=== PATIENT | female | born 1960 | race Caucasian/White ===

== ENCOUNTER 2022-12-10 04:24 | Observation (INO) | payer MEDICARE ==
[2022-12-10] MEDS ORDERED: Sodium Chloride 0.9% 1000 ML 1,000 ML IV STA ×2 (05:08→06:32)
[2022-12-10] MEDS ORDERED: Zofran 4 MG/2 ML VIAL IV ONE (05:08)
--- NOTE | 2022-12-10 05:09 | ERPHSYRPT ---
- History of Present Illness Historian: patient Exam Limitations: no limitations Patient Subjective Stated Complaint: pt states that on 12/07/22 at approx 0100 she woke up with a fever of 101.1 this was accompanied by a cough, chest/ nasal congestion, and diarrhea. reports diarrhea of brown liquid stool approx 5x/day. reports that rarely she coughs up green sputum but mostly isn't coughing much u p. states that she also started noticing bilat lower muscle aches that have remained unchanged despite applying her compression socks. Triage Nursing Assessment: pt ambulated into room 7 independently with slow steady gait after standing on scales for weight acquisition and to bathroom for need to urinate/ have a bowel movement. pt exited bathroom without having had a bm or urinating. she states that she has neurogenic bladder and sometimes has to self cath and is asking for a straight catheter- will speak with MD for order. pt is alert and oriented times three, able to speak in complete sentences, able to move all extremities, and with resp even and unlabored. lung sounds diminished bilat anterior. abd soft, obese, nontender, nondistended, with positive bowel sounds in all quadrants. dry nonproductive cough noted. skin warm, dry, pink, and intact. denies cp, sob, difficulty breathing, n/v, lightheadedness, dizziness. Timing/Duration: day(s) (5 to 6 days) Activities at Onset: none Quality: cramping Abdominal Pain Onset Location: generalized abdomen Severity of Pain-Max: mild Severity of Pain-Current: mild Modifying Factors: Improves With: coughing. Worsens With: vomiting Associated Symptoms: diarrhea, loss of appetite, weakness, No chest pain, No diaphoresis, No shortness of breath Previous symptoms: no prior history Hx Tetanus, Diphtheria Vaccination/Date Given: Yes Hx Influenza Vaccination/Date Given: Yes Hx Pneumococcal Vaccination/Date Given: No Immunizations Up to Date: Yes <AILEEN AKHTAR - Last Filed: 12/10/22 06:52> <ARIS WILKINS - Last Filed: 12/10/22 08:12> - History of Present Illness Time Seen by Provider: 12/10/22 04:55 Allergies/Adverse Reactions: latex Allergy (Intermediate, Unverified 12/10/22 07:55) Hives amoxicillin trihydrate [From Augmentin] Allergy (Mild, Verified 12/10/22 07:55) potassium clavula *RETIRED-08/06/12 [From Augmentin] Allergy (Mild, Verified 12/10/22 07:55) Sulfa (Sulfonamide Antibiotics) [Sulfa(Sulfonamide Antibiotics)] Allergy (Mild, Verified 12/10/22 07:55) sulfamethoxazole [From Bactrim] Allergy (Mild, Verified 12/10/22 07:55) trimethoprim [From Bactrim] Allergy (Mild, Verified 12/10/22 07:55) rofecoxib [From Vioxx] Allergy (Verified 12/10/22 07:55) Nausea and Vomiting Home Medications: Albuterol/Ipratropium Mdi [Combivent Inhaler] 2 puff IH Q4HPRN PRN 09/07/11 [History] Budesonide/Formoterol Fumarate [Symbicort 80-4.5 Mcg Inhaler] 2 puff IH BID 09/07/11 [History] Furosemide 40 mg [Lasix 40 MG] 40 mg PO DAILY 09/07/11 [History] Gabapentin [Neurontin ] 800 mg PO TID 09/07/11 [History] Levothyroxine Sodium 50 Mcg [Synthroid 50 Mcg] 50 mcg PO DAILY 09/07/11 [History] Montelukast Sodium 10 mg [Singulair 10 MG] 10 mg PO HS 09/07/11 [History] Nitrofurantoin Macro 100 mg [Macrobid 100MG Capsule] 100 mg PO 09/07/11 [History] Potassium Chloride Tab* [Klor Con] 10 meq PO BID 09/07/11 [History] Rosuvastatin Calcium [Crestor] 5 mg PO DAILY 09/07/11 [History] Topiramate [Topamax] 200 mg PO BID 09/07/11 [History] Sitagliptin Phosphate [Januvia] 50 mg PO DAILY 09/12/11 [History] carvediloL [Coreg] 6.25 mg PO BID 11/06/11 [History] [place]-3S/Dha/Epa/Fish Oil [Fish Oil 1,200 mg Softgel] 1 each PO DAILY 06/14/13 [History] Acetaminophen 500 mg [Tylenol Extra Strength 500 mg] 500 mg PO Q4H PRN 03/21/13 [History] Baclofen 10 mg PO HS 03/31/13 [History] Cyanocobalamin (Vitamin B-12) [Vitamin B-12] 1,000 mcg PO DAILY 03/31/13 [History] Dicyclomine HCl [Bentyl] 20 mg PO BID 03/31/13 [History] Duloxetine HCl [Cymbalta] 2 tab PO DAILY 03/31/13 [History] Ergocalciferol (Vitamin D2) [Vitamin D] 50,000 tab PO WEEKLY 03/31/13 [History] Fluticasone Propionate [Flonase] 16 gm NS DAILY 03/31/13 [History] Ipratropium/Albuterol Sulfate [Iprat-Albut 0.5-3(2.5) mg/3 ml] 1 neb IH Q4HPRN PRN 03/31/13 [History] Multivit with Iron,Minerals [Compete] 1 each PO DAILY 03/31/13 [History] Estradiol 1 mg [Estrace 1 mg] 1 mg WEEKLY 04/29/13 [History] Lorazepam 1 mg [Ativan 1 MG] 2 mg PO HS 04/29/13 [History] Alendronate Sodium 35 mg PO WEEKLY 07/20/13 [History] Esomeprazole Magnesium [Nexium] 10 mg PO DAILY 07/20/13 [History] Liraglutide [Victoza 2-Nabil] 1.2 mg SQ DAILY 07/20/13 [History] Ropinirole HCl [Requip] 4 mg PO HS 07/20/13 [History] Bumetanide 1 mg [Bumex 1 mg] 1 mg PO DIRECTIONS UNKNOWN 12/10/22 [History] Buspirone HCl 5 mg [Buspar 5 mg] 10 mg PO DAILY 12/10/22 [History] Dicyclomine HCl 20 mg [Bentyl 20 mg] 20 mg PO QID 12/10/22 [History] Duloxetine HCl 60 mg PO DAILY 12/10/22 [History] Gabapentin [Neurontin] 800 mg PO TID 12/10/22 [History] Midodrine HCl 5 mg PO TID 12/10/22 [History] Pantoprazole 40 mg [Protonix 40 mg IV] 40 mg PO DAILY 12/10/22 [History] Ropinirole HCl 3 mg PO TID 12/10/22 [History] Rosuvastatin Calcium 5 mg PO HS 12/10/22 [History] Topiramate [Topiramate ER] 25 mg PO HS 12/10/22 [History] Trazodone HCl 50 mg [Desyrel 50 mg] 50 mg PO HS 12/10/22 [History] Travel Risk - International Travel Have you traveled outside of the country in past 3 weeks: No - Coronavirus Screening Are you exhibiting any of the following symptoms?: Yes Symptoms: Cough: New Onset, Vomiting/Diarrhea Close contact with a COVID-19 positive Pt in past 14-21 Days: No - Vaccine Status Have you recieved a Covid-19 vaccination: Yes 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: [employer] - Vaccination Dates Date of 2cond Vaccination (if applicable): 07/21/20 <AILEEN AKHTAR - Last Filed: 12/10/22 06:52> - Review of Systems Constitutional: No Symptoms Eyes: No Symptoms Ears, Nose, & Throat: No Symptoms Respiratory: Cough, No Dyspnea, No Stridor, No Wheezing Cardiac: No Symptoms Abdominal/Gastrointestinal: Abdominal Pain (Mild diffuse cramping), Diarrhea, Appetite Changes Genitourinary Symptoms: No Symptoms Musculoskeletal: No Symptoms Skin: No Symptoms Neurological: No Symptoms Psychological: No Symptoms Endocrine: No Symptoms Hematologic/Lymphatic: No Symptoms Immunological/Allergic: No Symptoms All Other Systems: Reviewed and Negative <AILEEN AKHTAR - Last Filed: 12/10/22 06:52> - Past Medical History Pertinent Past Medical History: Yes Neurological History: Other ENT History: No Pertinent History Cardiac History: Arrhythmia, Other Respiratory History: Asthma, COPD Endocrine Medical History: Diabetes Type II Musculoskeletal History: Arthritis, Other GI Medical History: Crohns Disease, Other History: Other Psycho-Social History: Depression Female Reproductive Disorders: Cervical Cancer Other Medical History: POTS, RLS, valve replacement, PPM, Afib, IBS, neurogenic bladder (self cath at home PRN), scoliosis, neuropathy, - Past Surgical History Past Surgical History: Yes Neuro Surgical History: No Pertinent History Cardiac: Pacemaker, Valve Replacement Respiratory: Other Gastrointestinal: Appendectomy, Cholecystectomy Genitourinary: No Pertinent History Musculoskeletal: Joint Replacement, Other Female Surgical History: Hysterectomy Other Surgical History: "drained fluid from left lung" , spacers in bilat hips. left knee replacement - Social History Smoking Status: Former smoker Exposure to second hand smoke: Yes Drug Use: none Patient Lives Alone: Yes <AILEEN AKHTAR - Last Filed: 12/10/22 06:52> - Physical Exam General Appearance: no apparent distress, alert, anxiety, obese Eye Exam: PERRL/EOMI, eyes nml inspection Ears, Nose, Throat Exam: normal ENT inspection, moist mucous membranes Neck Exam: normal inspection, non-tender, supple, full range of motion Respiratory Exam: normal breath sounds, lungs clear, airway intact, No chest tenderness, No respiratory distress Cardiovascular Exam: regular rate/rhythm, normal heart sounds, normal peripheral pulses Gastrointestinal/Abdomen Exam: soft, normal bowel sounds, tenderness (Very mild but diffuse), guarding, No rebound Pelvic Exam: not done Rectal Exam: not done Back Exam: normal inspection, normal range of motion, No CVA tenderness, No vertebral tenderness Extremity Exam: normal inspection, normal range of motion, pelvis stable Neurologic Exam: alert, oriented x 3, cooperative, rehab therapy manager II-XII nml as tested, normal mood/affect, nml cerebellar function, nml station & gait, sensation nml Skin Exam: normal color, warm, dry Lymphatic Exam: No adenopathy SpO2 Interpretation: normal SpO2: 97 O2 Delivery: Room Air <AILEEN AKHTAR - Last Filed: 12/10/22 06:52> - Nursing Vital Signs Nursing Vital Signs: Initial Vital Signs Temperature 97.6 F 12/10/22 04:34 Pulse Rate 101 H 12/10/22 04:34 Respiratory Rate 16 12/10/22 04:34 Blood Pressure 127/95 12/10/22 04:34 O2 Sat by Pulse Oximetry 97 12/10/22 04:34 Pain Scale Pain Intensity 0 - Course Nursing assessment & vital signs reviewed: Yes <AILEEN AKHTAR - Last Filed: 12/10/22 06:52> Ordered Tests: Active Orders 24 hr Category Date Time Status IV Insertion STAT Care 12/10/22 05:08 Active ABDOMEN AND PELVIS W/0 CONTRAS [CT] Stat Exams 12/10/22 05:10 Completed CHEST 1 VIEW (PORTABLE) Stat Exams 12/10/22 05:09 Taken AMYLASE Stat Lab 12/10/22 05:58 Completed BLOOD CULTURE Stat Lab 12/10/22 05:58 Received CBC W DIFF Stat Lab 12/10/22 05:58 Completed CMP Stat Lab 12/10/22 05:58 Completed CULTURE,URINE Stat Lab 12/10/22 05:15 Received LIPASE Stat Lab 12/10/22 05:58 Completed Lactic Acid Stat Lab 12/10/22 05:20 Completed MONO SCREEN Stat Lab 12/10/22 05:58 Completed UA W/RFX UR CULTURE Stat Lab 12/10/22 05:15 Completed Medication Summary Discontinued Medications Generic Name Dose Route Start Last Admin Trade Name Freq PRN Reason Stop Dose Admin Hydrocodone Bitart/Acetaminophen 10 ml 12/10/22 05:14 12/10/22 05:20 Hydrocodone/Acetaminophen 5 Ml Udcup PO 12/10/22 05:15 10 ml STAT STA Administration Hydrocodone Bitart/Acetaminophen Confirm 12/10/22 05:18 Hydrocodone/Acetaminophen 5 Ml Udcup Administered 12/10/22 05:19 Dose 10 ml .ROUTE .STK-MED ONE Methylprednisolone Sodium 0 mg 12/10/22 05:14 12/10/22 05:20 Succinate 125 mg/ Sterile IV 12/10/22 05:15 125 mg Water 2 ml STAT ONE Administration Sodium Chloride 1,000 mls @ 999 mls/hr 12/10/22 05:08 12/10/22 06:41 Sodium Chloride 0.9% 1000 Ml IV 12/10/22 06:08 Infused .Q1H1M STA Infusion Sodium Chloride Confirm 12/10/22 05:18 Sodium Chloride 0.9% 1000 Ml Administered 12/10/22 05:19 Dose 1,000 mls @ ud .ROUTE .STK-MED ONE Levofloxacin/Dextrose 500 mg in 100 mls @ 100 mls/hr 12/10/22 05:50 12/10/22 07:02 Levofloxacin 500mg/100ml D5w IV 12/10/22 06:49 Infused STAT STA Infusion Levofloxacin/Dextrose Confirm 12/10/22 05:58 Levofloxacin 500mg/100ml D5w Administered 12/10/22 05:59 Dose 500 mg in 100 mls @ ud IV .STK-MED ONE Sodium Chloride 1,000 mls @ 999 mls/hr 12/10/22 06:32 12/10/22 07:53 Sodium Chloride 0.9% 1000 Ml IV 12/10/22 07:32 Infused .Q1H1M STA Infusion Sodium Chloride Confirm 12/10/22 06:39 Sodium Chloride 0.9% 1000 Ml Administered 12/10/22 06:40 Dose 1,000 mls @ ud .ROUTE .STK-MED ONE Methylprednisolone Sodium Succinate Confirm 12/10/22 05:18 Methylprednis Sod Succ 125 Mg/2 Ml Vial Administered 12/10/22 05:19 Dose 125 mg .ROUTE .STK-MED ONE Metronidazole 500 mg 12/10/22 05:50 12/10/22 05:58 Metronidazole 500 Mg Tablet PO 12/10/22 05:51 500 mg STAT ONE Administration Metronidazole Confirm 12/10/22 05:57 Metronidazole 500 Mg Tablet Administered 12/10/22 05:58 Dose 500 mg .ROUTE .STK-MED ONE Ondansetron HCl 4 mg 12/10/22 05:08 12/10/22 05:20 Ondansetron Hcl 4 Mg/2 Ml Vial IV 12/10/22 05:09 4 mg STAT ONE Administration Ondansetron HCl Confirm 12/10/22 05:18 Ondansetron Hcl 4 Mg/2 Ml Vial Administered 12/10/22 05:19 Dose 4 mg .ROUTE .STK-MED ONE Sterile Water Confirm 12/10/22 05:18 Water For Injection,Sterile 10 Ml Vial Administered 12/10/22 05:19 Dose 10 ml IJ .STK-MED ONE Lab/Rad Data: Laboratory Result Diagrams 12/10/22 05:58 12/10/22 05:58 Laboratory Results 12/10/22 12/10/22 12/10/22 Range/Units 06:12 06:12 05:58 WBC (4.0-10.5) x10^3/uL RBC (4.1-5.4) x10^6/uL Hgb (12.0-16.0) g/dL Hct (35-47) % MCV (78-100) fL MCH (26-32) pg MCHC (32-36) g/dL RDW (11.5-14.0) % Plt Count (150-450) x10^3/uL MPV (7.5-11.0) fL Gran % (36.0-66.0) % Immature Gran % (Auto) (0.00-0.4) % Nucleat RBC Rel Count (0.00-0.1) % Eos # (Auto) (0-0.5) x10^3/uL Immature Gran # (Auto) (0.00-0.03) x10^3u/L Absolute Lymphs (auto) (1.0-4.6) x10^3/uL Absolute Monos (auto) (0.0-1.3) x10^3/uL Absolute Nucleated RBC (0.00-0.01) x10^3u/L Lymphocytes % (24.0-44.0) % Monocytes % (0.0-12.0) % Eosinophils % (0.00-5.0) % Basophils % (0.0-0.4) % Absolute Granulocytes (1.4-6.9) x10^3/uL Basophils # (0-0.4) x10^3/uL Sodium (137-145) mmol/L Potassium (3.5-5.1) mmol/L Chloride (98-107) mmol/L Carbon Dioxide (22-30) mmol/L Anion Gap (5-15) MEQ/L BUN (7-17) mg/dL Creatinine (0.52-1.04) mg/dL Estimated GFR ML/MIN Glucose (74-106) mg/dL Lactic Acid (0.4-2.0) Calcium (8.4-10.2) mg/dL Total Bilirubin (0.2-1.3) mg/dL AST (14-36) U/L ALT (0-35) U/L Alkaline Phosphatase (38-126) U/L Serum Total Protein (6.3-8.2) g/dL Albumin (3.5-5.0) g/dL Amylase (30-110) U/L Lipase (23-300) U/L Urine Color (Yellow) Urine Appearance (Clear) Urine pH (4.6-8.0) Ur Specific [place] (1.005-1.030) Urine Protein (Negative) Urine Glucose (UA) (Negative) mg/dL Urine Ketones (Negative) Urine Blood (Negative) Urine Nitrite (Negative) Urine Bilirubin (Negative) Urine Urobilinogen (0.2) mg/dL Ur Leukocyte Esterase (Negative) U Hyaline Cast (Auto) (0-2) /LPF Urine Microscopic RBC (0-5) /HPF Urine Microscopic WBC (0-5) /HPF Ur Epithelial Cells (None Seen) /HPF Urine Bacteria (None Seen) /HPF Urine Culture Reflexed (NO) Monoscreen NEGATIVE (NEGATIVE) Influenza Type A Ag NEGATIVE (NEGATIVE) Influenza Type B Ag NEGATIVE (NEGATIVE) RSV (PCR) NEGATIVE (NEGATIVE) SARS-CoV-2 (PCR) NEGATIVE (NEGATIVE) Group A Strep Antibody NOT DETECTED (NEGATIVE) 12/10/22 12/10/22 12/10/22 Range/Units 05:58 05:58 05:20 WBC 9.5 (4.0-10.5) x10^3/uL RBC 4.43 (4.1-5.4) x10^6/uL Hgb 12.5 (12.0-16.0) g/dL Hct 38.7 (35-47) % MCV 87.4 (78-100) fL MCH 28.2 (26-32) pg MCHC 32.3 (32-36) g/dL RDW 13.8 (11.5-14.0) % Plt Count 192 (150-450) x10^3/uL MPV 9.2 (7.5-11.0) fL Gran % 71.8 H (36.0-66.0) % Immature Gran % (Auto) 0.3 (0.00-0.4) % Nucleat RBC Rel Count 0.0 (0.00-0.1) % Eos # (Auto) 0 (0-0.5) x10^3/uL Immature Gran # (Auto) 0.03 (0.00-0.03) x10^3u/L Absolute Lymphs (auto) 2.01 (1.0-4.6) x10^3/uL Absolute Monos (auto) 0.63 (0.0-1.3) x10^3/uL Absolute Nucleated RBC 0.00 (0.00-0.01) x10^3u/L Lymphocytes % 21.2 L (24.0-44.0) % Monocytes % 6.6 (0.0-12.0) % Eosinophils % 0.0 (0.00-5.0) % Basophils % 0.1 (0.0-0.4) % Absolute Granulocytes 6.80 (1.4-6.9) x10^3/uL Basophils # 0.01 (0-0.4) x10^3/uL Sodium 136 L (137-145) mmol/L Potassium 3.6 (3.5-5.1) mmol/L Chloride 102 (98-107) mmol/L Carbon Dioxide 21 L (22-30) mmol/L Anion Gap 13.6 (5-15) MEQ/L BUN 10 (7-17) mg/dL Creatinine 0.59 (0.52-1.04) mg/dL Estimated GFR > 60.0 ML/MIN Glucose 103 (74-106) mg/dL Lactic Acid 1.1 (0.4-2.0) Calcium 8.8 (8.4-10.2) mg/dL Total Bilirubin 0.70 (0.2-1.3) mg/dL AST 21 (14-36) U/L ALT 14 (0-35) U/L Alkaline Phosphatase 103 (38-126) U/L Serum Total Protein 8.1 (6.3-8.2) g/dL Albumin 4.2 (3.5-5.0) g/dL Amylase 67 (30-110) U/L Lipase 59 (23-300) U/L Urine Color (Yellow) Urine Appearance (Clear) Urine pH (4.6-8.0) Ur Specific [place] (1.005-1.030) Urine Protein (Negative) Urine Glucose (UA) (Negative) mg/dL Urine Ketones (Negative) Urine Blood (Negative) Urine Nitrite (Negative) Urine Bilirubin (Negative) Urine Urobilinogen (0.2) mg/dL Ur Leukocyte Esterase (Negative) U Hyaline Cast (Auto) (0-2) /LPF Urine Microscopic RBC (0-5) /HPF Urine Microscopic WBC (0-5) /HPF Ur Epithelial Cells (None Seen) /HPF Urine Bacteria (None Seen) /HPF Urine Culture Reflexed (NO) Monoscreen (NEGATIVE) Influenza Type A Ag (NEGATIVE) Influenza Type B Ag (NEGATIVE) RSV (PCR) (NEGATIVE) SARS-CoV-2 (PCR) (NEGATIVE) Group A Strep Antibody (NEGATIVE) 12/10/22 Range/Units 05:15 WBC (4.0-10.5) x10^3/uL RBC (4.1-5.4) x10^6/uL Hgb (12.0-16.0) g/dL Hct (35-47) % MCV (78-100) fL MCH (26-32) pg MCHC (32-36) g/dL RDW (11.5-14.0) % Plt Count (150-450) x10^3/uL MPV (7.5-11.0) fL Gran % (36.0-66.0) % Immature Gran % (Auto) (0.00-0.4) % Nucleat RBC Rel Count (0.00-0.1) % Eos # (Auto) (0-0.5) x10^3/uL Immature Gran # (Auto) (0.00-0.03) x10^3u/L Absolute Lymphs (auto) (1.0-4.6) x10^3/uL Absolute Monos (auto) (0.0-1.3) x10^3/uL Absolute Nucleated RBC (0.00-0.01) x10^3u/L Lymphocytes % (24.0-44.0) % Monocytes % (0.0-12.0) % Eosinophils % (0.00-5.0) % Basophils % (0.0-0.4) % Absolute Granulocytes (1.4-6.9) x10^3/uL Basophils # (0-0.4) x10^3/uL Sodium (137-145) mmol/L Potassium (3.5-5.1) mmol/L Chloride (98-107) mmol/L Carbon Dioxide (22-30) mmol/L Anion Gap (5-15) MEQ/L BUN (7-17) mg/dL Creatinine (0.52-1.04) mg/dL Estimated GFR ML/MIN Glucose (74-106) mg/dL Lactic Acid (0.4-2.0) Calcium (8.4-10.2) mg/dL Total Bilirubin (0.2-1.3) mg/dL AST (14-36) U/L ALT (0-35) U/L Alkaline Phosphatase (38-126) U/L Serum Total Protein (6.3-8.2) g/dL Albumin (3.5-5.0) g/dL Amylase (30-110) U/L Lipase (23-300) U/L Urine Color Yellow (Yellow) Urine Appearance Cloudy A (Clear) Urine pH 5.5 (4.6-8.0) Ur Specific [place] 1.010 (1.005-1.030) Urine Protein Negative (Negative) Urine Glucose (UA) Negative (Negative) mg/dL Urine Ketones Negative (Negative) Urine Blood Negative (Negative) Urine Nitrite Negative (Negative) Urine Bilirubin Negative (Negative) Urine Urobilinogen 1.0 A (0.2) mg/dL Ur Leukocyte Esterase Large A (Negative) U Hyaline Cast (Auto) NONE SEEN (0-2) /LPF Urine Microscopic RBC 0-2 (0-5) /HPF Urine Microscopic WBC 51-100 A (0-5) /HPF Ur Epithelial Cells Rare (None Seen) /HPF Urine Bacteria Moderate A (None Seen) /HPF Urine Culture Reflexed ORDERED SEPARATELY (NO) Monoscreen (NEGATIVE) Influenza Type A Ag (NEGATIVE) Influenza Type B Ag (NEGATIVE) RSV (PCR) (NEGATIVE) SARS-CoV-2 (PCR) (NEGATIVE) Group A Strep Antibody (NEGATIVE) - Progress Progress: improved, re-examined Counseled pt/family regarding: lab results, diagnosis, need for follow-up, rad results <AILEEN AKHTAR - Last Filed: 12/10/22 06:52> <ARIS WILKINS - Last Filed: 12/10/22 08:12> - Progress Progress Note: 12/10/22 06:52 This patient's medical issue is 1 of moderate complexity. Level complexity in the work-up performed based on review of the patient's past medical history, review of the patient's medication list, review of the patient's drug allergy list, history of present illness and physical findings on examination. The work-up in this patient includes placement of intravenous line, infusion of normal saline solution, infusion of Zofran 4 mg intravenously, chest x-ray, CBC, CMP, amylase, lipase, urinalysis. In addition, CAT scan of the abdomen pelvis was performed. I reviewed the results of the labs that have returned. Patient has a significant urinary tract infection. We are awaiting the final reads of the chest x-ray and CAT scan of the abdomen and pelvis. We are also waiting for viral studies to return. I have discussed this patient with Dr. Wilkins at shift change. He is now assuming care of the patient. He will follow-up with the results of the remaining studies and make final disposition. (AILEEN AKHTAR) 12/10/22 07:35 Assumed care of pt at 7AM w cough/coryza/nausea/diarrhea x 3 days. Pt on 2nd liter of NS and has been given 750mg IV Levaquin/500mg IV Flagyl. CV19 negative/CT ab-pelvis pneumonia R base Pt alert and oriented x3 Lungs rales at bases B Heart tachy wo murmur Abdomen good BS's/soft/NTTP 12/10/22 07:37 12/10/22 08:[address] Pacheco due to several BP's in the low 90's and tachycardia up in the 120's w minimal exertion. (ARIS WILKINS) Medical Desision Making - Diagnostic Testing Diagnostic test were ordered, analyzed, and reviewed by me: Yes - Risk of complications The pt has a mod risk of morbidity or mortality based on: Need for prescription drug management <AILEEN AKHTAR - Last Filed: 12/10/22 06:52> - Risk of complications The pt has a high risk of morbidity or mortality based on: Decision regarding hospitilization or escalation of hosp level of care <ARIS WILKINS - Last Filed: 12/10/22 08:12> - Departure Departure Disposition: Home Critical Care Time: No <AILEEN AKHTAR - Last Filed: 12/10/22 06:52> - Departure Departure Disposition: Observation <ARIS WILKINS - Last Filed: 12/10/22 08:12> - Departure Clinical Impression: UTI (urinary tract infection), Colitis, Pneumonia Condition: Stable Referrals: MELCHOR VILLALOBOS MD [Primary Care Provider] - Follow up/PCP as directed Instructions: Diarrhea and Travelers' Diarrhea, Adult (DC), Pneumonia, Adult (DC) Additional Instructions: Drink plenty of fluids. Take your antibiotics as prescribed. Follow-up with your primary care provider for further evaluation management. Prescriptions: Metronidazole 500 mg [Flagyl 500 MG] 500 mg PO TID #21 tablet Levofloxacin [Levaquin 500 MG Tablet] 500 mg PO DAILY #7 tablet
[2022-12-10] MEDS ORDERED: solu-MEDROL 125 MG, Sterile H2O 10 ml 2 ML IV ONE ×2 (05:14)
[2022-12-10] MEDS ORDERED: HYDROCODONE-ACETAMIN 2.5-108/5 ML SOLUTION PO STA (05:14)
[2022-12-10] MEDS ORDERED: Sterile H2O 10 ml IJ ONE (05:18)
[2022-12-10] MEDS ORDERED: HYDROCODONE-ACETAMIN 2.5-108/5 ML SOLUTION ONE (05:18)
[2022-12-10] MEDS ORDERED: solu-MEDROL ONE (05:18)
[2022-12-10] MEDS ORDERED: Sodium Chloride 0.9% 1000 ML 1,000 ML ONE ×2 (05:18→06:39)
[2022-12-10] MEDS ORDERED: Zofran 4 MG/2 ML VIAL ONE (05:18)
[2022-12-10 05:34] LABS: Appearance Cloudy (Clear); Bacteria Moderate /HPF (None Seen); Bilirubin Negative (Negative); Blood Negative (Negative); Epithelial Cells Rare /HPF (None Seen); Glucose, Urine Negative (Negative); Hyaline Casts NONE SEEN /LPF (0-2); Ketones Negative (Negative); Leukocyte Esterase Large (Negative); Nitrite Negative (Negative); Ph 5.5 (4.6-8.0); Protein,Urine Dip Negative (Negative); RBC 0-2 /HPF (0-5); WBC 51-100 /HPF (0-5)
[2022-12-10 05:38] LABS: ADD URINE CULTURE? ORDERED SEPARATELY (NO)
[2022-12-10] MEDS ORDERED: Flagyl 500 MG PO ONE (05:50)
[2022-12-10] MEDS ORDERED: Levofloxacin 500MG/100ML D5W 500 MG/100 ML BAG IV STA (05:50)
[2022-12-10] MEDS ORDERED: Flagyl 500 MG ONE (05:57)
[2022-12-10] MEDS ORDERED: Levofloxacin 500MG/100ML D5W 500 MG/100 ML BAG IV ONE (05:58)
[2022-12-10 06:13] LABS: BASOPHIL % 0.1 % (0.0-0.4); Basophil (Absolute #) 0.01 x10^3/uL (0-0.4); Eosinophil (Absolute #) 0 x10^3/uL (0-0.5); Hematocrit 38.7 % (35-47); Hemoglobin 12.5 g/dL (12.0-16.0); IMMATURE GRAN # 0.03 x10^3u/L (0.00-0.03); IMMATURE GRAN % 0.3 % (0.00-0.4); Lymphocyte (Absolute #) 2.01 x10^3/uL (1.0-4.6); Lymphocytes % 21.2 % (24.0-44.0); Mean Cell Volume 87.4 fL (78-100); Mean Corpuscular Hemoglobin 28.2 pg (26-32); Mean Corpuscular Hgb Concent. 32.3 g/dL (32-36); Mean Platelet Volume 9.2 fL (7.5-11.0); Monocyte (Absolute #) 0.63 x10^3/uL (0.0-1.3); Monocytes % 6.6 % (0.0-12.0); Neutrophil % 71.8 % (36.0-66.0); Platelet Count 192 x10^3/uL (150-450); Red Blood Count 4.43 x10^6/uL (4.1-5.4); Red Cell Distribution Width 13.8 % (11.5-14.0); White Blood Count 9.5 x10^3/uL (4.0-10.5)
[2022-12-10 06:27] LABS: ALBUMIN 4.2 g/dL (3.5-5.0); ALKALINE PHOSPHATASE 103 U/L (38-126); AMYLASE 67 U/L (30-110); BLOOD UREA NITROGEN 10 mg/dL (7-17); CHLORIDE 102 mmol/L (98-107); Calcium 8.8 mg/dL (8.4-10.2); Carbon Dioxide 21 mmol/L (22-30); Creatinine 1 0.59 mg/dL (0.52-1.04); EST GLOMERULAR FILTRATION RATE > 60.0 ML/MIN; Glucose 103 mg/dL (74-106); LIPASE 59 U/L (23-300); Potassium 3.6 mmol/L (3.5-5.1); SGOT/AST 21 U/L (14-36); SGPT/ALT 14 U/L (0-35); SODIUM 136 mmol/L (137-145); Total Protein 8.1 g/dL (6.3-8.2)
[2022-12-10 06:28] LABS: ANION GAP 13.6 MEQ/L (5-15)
--- NOTE | 2022-12-10 06:36 | XRAY ---
CLINICAL HISTORY:ABD cramping; diarrhea COMPARISON:None TECHNIQUE:Axial sections of CT abdomen and pelvis were obtained without administration of intravenous contrast. ;Reformatted coronal and sagittal images were acquired. FINDINGS: The liver is normal in size and attenuation. No discrete focal hepatic lesion was seen. No definite evidence of intrahepatic biliary dilatation. Mild prominence of the CBD, likely secondary to cholecystectomy. Clinical and lab correlation is advised. Spleen is enlarged measuring 15.2 cm. Pancreas appears unremarkable. Bilateral adrenal glands appear unremarkable. Both kidneys are normal in size and shape. Cyst measuring approximately 2.2 x 2.2 cm in the right kidney. No renal calculus or evidence of obstructive uropathy. Urinary bladder appears unremarkable. The uterus is not visualized, likely secondary to hysterectomy. Bilateral adnexa appears unremarkable. Visualized large and small bowel loops appear unremarkable. No abnormal bowel dilatation or abnormal bowel wall thickening. The stomach is partially distended. No ascites or pneumoperitoneum. Few prominent bilateral inguinal region lymph nodes. Mild atherosclerotic changes in the abdominal aorta and its branches. Scattered areas of subtle nodularity in the visualized right lung base, suggestive of infectious etiology. Clinical correlation and follow-up is advised. Partially visualized intact wires of the pacemaker seen. Degenerative changes in the visualized spine. Metallic implant in the region of the left sacroiliac joint. IMPRESSION: 1. No acute intra-abdominal or pelvic pathology. 2. No definite evidence of abnormal bowel wall thickening or dilatation. 3. Scattered areas of subtle nodularity in the visualized right lung base, suggestive of infectious etiology. Clinical correlation and follow-up is advised. 4. Splenomegaly. Electronically Signed by: Beck Christina MD. 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
[2022-12-10 07:08] LABS: INFLUENZA A NEGATIVE (NEGATIVE); INFLUENZA B NEGATIVE (NEGATIVE); RESPIRATORY SYNCTIAL VIRUS NEGATIVE (NEGATIVE); SARS-CoV-2 Xpert Express NEGATIVE (NEGATIVE)
[2022-12-10] MEDS ORDERED: Zithromax 500 MG/ 250 ML NaCl Premix 500 MG/250 ML IVPB IV STA (08:07)
[2022-12-10] MEDS ORDERED: Zithromax 500 MG/ 250 ML NaCl Premix 500 MG/250 ML IVPB IV ONE (08:15)
--- NOTE | 2022-12-10 08:24 | PCM.HP ---
History of Present Illness - Chief Complaint Chief Complaint: pneumonia Date: 12/10/22 History of Present Illness: is a 62 year old female with hx of pacemaker, heart valve replacement ( mitral and pulmonary valve), CHF, POTS, neurogenic bladder, diverticulitis, asthma, COPD, migranes, neuropathy, RLS, depression and anxiety. She has used a CPAP in the past for sleep apnea but no longer uses this as she lost the machine. Pt states that on 12/07/22 at approx 0100 she woke up with a fever of 101.1 this was accompanied by a cough, chest/ nasal congestion, and diarrhea. Reports diarrhea of brown liquid stool approx 5x/day. Diarrhea has now stopped and pt explains she used Pepto- bismol for her sxs with relief. She reports a cough with green sputum production but not able to get much up. She also started noticing bilat lower extremity muscle aches that have remained unchanged despite applying her compression socks. In the ER it appears she received 2 fluid boluses, flagyl, levaquin, and azithromycin. She also recievd nausea and pain medication. PCP: Dr. Scott Cardiology: Dr. Camacho Pulmonology: Dr. Lincoln - Review of Systems Constitutional: Fever, No Chills Eyes: No Symptoms Ears, Nose, & Throat: No Symptoms Respiratory: Cough, Other (with green sputum production), No Short Of Breath Cardiac: No Chest Pain, No Edema, No Syncope Abdominal/Gastrointestinal: Diarrhea, No Abdominal Pain, No Nausea, No Vomiting Genitourinary Symptoms: No Dysuria Musculoskeletal: No Back Pain, No Neck Pain Skin: No Rash Neurological: No Dizziness, No Focal Weakness, No Sensory Changes Psychological: No Symptoms Endocrine: No Symptoms Hematologic/Lymphatic: No Symptoms Immunological/Allergic: No Symptoms Medications & Allergies Home Medications: Home Medication List Montelukast Sodium 10 mg [Singulair 10 MG] 10 mg PO HS 09/07/11 [History Confirmed 12/10/22] Cyanocobalamin (Vitamin B-12) [Vitamin B-12] 1,000 mcg PO DAILY 03/31/13 [History Confirmed 12/10/22] Bumetanide 1 mg [Bumex 1 mg] 1 mg PO DAILY 12/10/22 [History Confirmed 12/10/22] Buspirone HCl 5 mg [Buspar 5 mg] 10 mg PO DAILY 12/10/22 [History Confirmed 12/10/22] Dicyclomine HCl 20 mg [Bentyl 20 mg] 20 mg PO QID 12/10/22 [History Confirmed 12/10/22] Duloxetine HCl 60 mg PO DAILY 12/10/22 [History Confirmed 12/10/22] Gabapentin [Neurontin] 800 mg PO TID 12/10/22 [History Confirmed 12/10/22] Magnesium 400 mg PO DAILY 12/10/22 [History Confirmed 12/10/22] Midodrine HCl 5 mg PO TID 12/10/22 [History Confirmed 12/10/22] Pantoprazole 40 mg [Protonix 40 mg IV] 40 mg PO DAILY 12/10/22 [History Confirmed 12/10/22] Ropinirole HCl 3 mg PO TID 12/10/22 [History Confirmed 12/10/22] Rosuvastatin Calcium 5 mg PO HS 12/10/22 [History Confirmed 12/10/22] Topiramate 25 mg [Topamax 25 MG] 25 mg PO HS 12/10/22 [History Confirmed 12/10/22] Tramadol HCl 50 mg [Ultram 50 mg] 50 mg PO Q12H PRN 12/10/22 [History Confirmed 12/10/22] Trazodone HCl 50 mg [Desyrel 50 mg] 50 mg PO HS 12/10/22 [History Confirmed 12/10/22] Allergies/Adverse Reactions: Allergies Allergy/AdvReac Type Severity Reaction Status Date / Time latex Allergy Intermediate Hives Unverified 12/10/22 07:55 amoxicillin trihydrate Allergy Mild Verified 12/10/22 07:55 [From Augmentin] potassium clavula Allergy Mild Verified 12/10/22 07:55 *RETIRED-08/06/12 [From Augmentin] Sulfa (Sulfonamide Allergy Mild Verified 12/10/22 07:55 Antibiotics) [Sulfa(Sulfonamide Antibiotics)] sulfamethoxazole Allergy Mild Verified 12/10/22 07:55 [From Bactrim] trimethoprim [From Bactrim] Allergy Mild Verified 12/10/22 07:55 rofecoxib [From Vioxx] Allergy Nausea and Verified 12/10/22 07:55 Vomiting - Past Medical History Past Medical History: Yes Neurological History: Peripheral Neuropathy, Other ENT History: No Pertinent History Cardiac History: Arrhythmia, Congestive Heart Failure, High Cholesterol, Other Respiratory History: Asthma, COPD Endocrine Medical History: No Pertinent History Musculoskelatal History: Arthritis, Other GI Medical History: Diverticulitis, Other History: Other Pyscho-Social History: Anxiety, Depression Reproductive Disorders: Cervical Cancer Comment: POTS, RLS, valve replacement, PPM, Afib, IBS, neurogenic bladder (self cath at home PRN), scoliosis, neuropathy, - Past Surgical History Past Surgical History: Yes Neuro Surgical History: No Pertinent History Cardiac History: Pacemaker, Valve Replacement Respiratory Surgery: Other GI Surgical History: Appendectomy, Cholecystectomy Genitourinary Surgical Hx: No Pertinent History Musculskeletal Surgical Hx: Joint Replacement, Other Female Surgical History: Hysterectomy Other Surgical History: "drained fluid from left lung" , spacers in bilat hips. left knee replacement - Social History Smoking Status: Former smoker How long have you smoked: 6 Exposure to second hand smoke: Yes Alcohol: None Drug Use: none - Physical Exam Vital Signs: Vital Signs - 24 hr Temp Pulse Resp BP BP Pulse Ox 12/10/22 08:00 78 21 105/69 95 12/10/22 07:30 78 27 H 107/69 95 12/10/22 07:27 128 H 21 96/62 95 12/10/22 07:03 70 23 93/59 92 L 12/10/22 07:01 75 19 95/54 91 L 12/10/22 07:00 105 H 16 85/58 94 L 12/10/22 06:58 97 12/10/22 06:30 80 16 100/61 93 L 12/10/22 06:12 80 18 114/56 94 L 12/10/22 05:42 81 18 121/77 96 12/10/22 05:00 90 16 122/69 97 12/10/22 04:37 102 H 22 127/95 97 12/10/22 04:34 97.6 F 101 H 16 127/95 97 General Appearance: no apparent distress, alert Neurologic Exam: alert, oriented x 3, cooperative, normal mood/affect, nml cerebellar function, nml station & gait, sensation nml, No motor deficits Eye Exam: PERRL/EOMI, eyes nml inspection Ears, Nose, Throat Exam: normal ENT inspection, TMs normal, pharynx normal, moist mucous membranes Neck Exam: normal inspection, non-tender, supple, full range of motion Respiratory Exam: normal breath sounds, lungs clear, No respiratory distress Cardiovascular Exam: regular rate/rhythm, normal heart sounds, normal peripheral pulses Gastrointestinal/Abdomen Exam: soft, normal bowel sounds, No tenderness, No mass Back Exam: normal inspection, normal range of motion, No CVA tenderness, No vertebral tenderness Extremity Exam: normal inspection, normal range of motion, pelvis stable Skin Exam: normal color, warm, dry, No rash Lymphatic Exam: No adenopathy Results - Labs Lab/Micro Results: Lab Results-Last 24 Hours 12/10/22 12/10/22 12/10/22 Range/Units 05:15 05:20 05:58 WBC 9.5 (4.0-10.5) x10^3/uL RBC 4.43 (4.1-5.4) x10^6/uL Hgb 12.5 (12.0-16.0) g/dL Hct 38.7 (35-47) % MCV 87.4 (78-100) fL MCH 28.2 (26-32) pg MCHC 32.3 (32-36) g/dL RDW 13.8 (11.5-14.0) % Plt Count 192 (150-450) x10^3/uL MPV 9.2 (7.5-11.0) fL Gran % 71.8 H (36.0-66.0) % Immature Gran % (Auto) 0.3 (0.00-0.4) % Nucleat RBC Rel Count 0.0 (0.00-0.1) % Eos # (Auto) 0 (0-0.5) x10^3/uL Immature Gran # (Auto) 0.03 (0.00-0.03) x10^3u/L Absolute Lymphs (auto) 2.01 (1.0-4.6) x10^3/uL Absolute Monos (auto) 0.63 (0.0-1.3) x10^3/uL Absolute Nucleated RBC 0.00 (0.00-0.01) x10^3u/L Lymphocytes % 21.2 L (24.0-44.0) % Monocytes % 6.6 (0.0-12.0) % Eosinophils % 0.0 (0.00-5.0) % Basophils % 0.1 (0.0-0.4) % Absolute Granulocytes 6.80 (1.4-6.9) x10^3/uL Basophils # 0.01 (0-0.4) x10^3/uL Sodium (137-145) mmol/L Potassium (3.5-5.1) mmol/L Chloride (98-107) mmol/L Carbon Dioxide (22-30) mmol/L Anion Gap (5-15) MEQ/L BUN (7-17) mg/dL Creatinine (0.52-1.04) mg/dL Estimated GFR ML/MIN Glucose (74-106) mg/dL Lactic Acid 1.1 (0.4-2.0) Calcium (8.4-10.2) mg/dL Total Bilirubin (0.2-1.3) mg/dL AST (14-36) U/L ALT (0-35) U/L Alkaline Phosphatase (38-126) U/L Serum Total Protein (6.3-8.2) g/dL Albumin (3.5-5.0) g/dL Amylase (30-110) U/L Lipase (23-300) U/L Urine Color Yellow (Yellow) Urine Appearance Cloudy A (Clear) Urine pH 5.5 (4.6-8.0) Ur Specific [place] 1.010 (1.005-1.030) Urine Protein Negative (Negative) Urine Glucose (UA) Negative (Negative) mg/dL Urine Ketones Negative (Negative) Urine Blood Negative (Negative) Urine Nitrite Negative (Negative) Urine Bilirubin Negative (Negative) Urine Urobilinogen 1.0 A (0.2) mg/dL Ur Leukocyte Esterase Large A (Negative) U Hyaline Cast (Auto) NONE SEEN (0-2) /LPF Urine Microscopic RBC 0-2 (0-5) /HPF Urine Microscopic WBC 51-100 A (0-5) /HPF Ur Epithelial Cells Rare (None Seen) /HPF Urine Bacteria Moderate A (None Seen) /HPF Urine Culture Reflexed ORDERED SEPARATELY (NO) Monoscreen (NEGATIVE) Influenza Type A Ag (NEGATIVE) Influenza Type B Ag (NEGATIVE) RSV (PCR) (NEGATIVE) SARS-CoV-2 (PCR) (NEGATIVE) Group A Strep Antibody (NEGATIVE) 12/10/22 12/10/22 12/10/22 Range/Units 05:58 05:58 06:12 WBC (4.0-10.5) x10^3/uL RBC (4.1-5.4) x10^6/uL Hgb (12.0-16.0) g/dL Hct (35-47) % MCV (78-100) fL MCH (26-32) pg MCHC (32-36) g/dL RDW (11.5-14.0) % Plt Count (150-450) x10^3/uL MPV (7.5-11.0) fL Gran % (36.0-66.0) % Immature Gran % (Auto) (0.00-0.4) % Nucleat RBC Rel Count (0.00-0.1) % Eos # (Auto) (0-0.5) x10^3/uL Immature Gran # (Auto) (0.00-0.03) x10^3u/L Absolute Lymphs (auto) (1.0-4.6) x10^3/uL Absolute Monos (auto) (0.0-1.3) x10^3/uL Absolute Nucleated RBC (0.00-0.01) x10^3u/L Lymphocytes % (24.0-44.0) % Monocytes % (0.0-12.0) % Eosinophils % (0.00-5.0) % Basophils % (0.0-0.4) % Absolute Granulocytes (1.4-6.9) x10^3/uL Basophils # (0-0.4) x10^3/uL Sodium 136 L (137-145) mmol/L Potassium 3.6 (3.5-5.1) mmol/L Chloride 102 (98-107) mmol/L Carbon Dioxide 21 L (22-30) mmol/L Anion Gap 13.6 (5-15) MEQ/L BUN 10 (7-17) mg/dL Creatinine 0.59 (0.52-1.04) mg/dL Estimated GFR > 60.0 ML/MIN Glucose 103 (74-106) mg/dL Lactic Acid (0.4-2.0) Calcium 8.8 (8.4-10.2) mg/dL Total Bilirubin 0.70 (0.2-1.3) mg/dL AST 21 (14-36) U/L ALT 14 (0-35) U/L Alkaline Phosphatase 103 (38-126) U/L Serum Total Protein 8.1 (6.3-8.2) g/dL Albumin 4.2 (3.5-5.0) g/dL Amylase 67 (30-110) U/L Lipase 59 (23-300) U/L Urine Color (Yellow) Urine Appearance (Clear) Urine pH (4.6-8.0) Ur Specific Ashby (1.005-1.030) Urine Protein (Negative) Urine Glucose (UA) (Negative) mg/dL Urine Ketones (Negative) Urine Blood (Negative) Urine Nitrite (Negative) Urine Bilirubin (Negative) Urine Urobilinogen (0.2) mg/dL Ur Leukocyte Esterase (Negative) U Hyaline Cast (Auto) (0-2) /LPF Urine Microscopic RBC (0-5) /HPF Urine Microscopic WBC (0-5) /HPF Ur Epithelial Cells (None Seen) /HPF Urine Bacteria (None Seen) /HPF Urine Culture Reflexed (NO) Monoscreen NEGATIVE (NEGATIVE) Influenza Type A Ag (NEGATIVE) Influenza Type B Ag (NEGATIVE) RSV (PCR) (NEGATIVE) SARS-CoV-2 (PCR) (NEGATIVE) Group A Strep Antibody NOT DETECTED (NEGATIVE) 12/10/22 Range/Units 06:12 WBC (4.0-10.5) x10^3/uL RBC (4.1-5.4) x10^6/uL Hgb (12.0-16.0) g/dL Hct (35-47) % MCV (78-100) fL MCH (26-32) pg MCHC (32-36) g/dL RDW (11.5-14.0) % Plt Count (150-450) x10^3/uL MPV (7.5-11.0) fL Gran % (36.0-66.0) % Immature Gran % (Auto) (0.00-0.4) % Nucleat RBC Rel Count (0.00-0.1) % Eos # (Auto) (0-0.5) x10^3/uL Immature Gran # (Auto) (0.00-0.03) x10^3u/L Absolute Lymphs (auto) (1.0-4.6) x10^3/uL Absolute Monos (auto) (0.0-1.3) x10^3/uL Absolute Nucleated RBC (0.00-0.01) x10^3u/L Lymphocytes % (24.0-44.0) % Monocytes % (0.0-12.0) % Eosinophils % (0.00-5.0) % Basophils % (0.0-0.4) % Absolute Granulocytes (1.4-6.9) x10^3/uL Basophils # (0-0.4) x10^3/uL Sodium (137-145) mmol/L Potassium (3.5-5.1) mmol/L Chloride (98-107) mmol/L Carbon Dioxide (22-30) mmol/L Anion Gap (5-15) MEQ/L BUN (7-17) mg/dL Creatinine (0.52-1.04) mg/dL Estimated GFR ML/MIN Glucose (74-106) mg/dL Lactic Acid (0.4-2.0) Calcium (8.4-10.2) mg/dL Total Bilirubin (0.2-1.3) mg/dL AST (14-36) U/L ALT (0-35) U/L Alkaline Phosphatase (38-126) U/L Serum Total Protein (6.3-8.2) g/dL Albumin (3.5-5.0) g/dL Amylase (30-110) U/L Lipase (23-300) U/L Urine Color (Yellow) Urine Appearance (Clear) Urine pH (4.6-8.0) Ur Specific [place] (1.005-1.030) Urine Protein (Negative) Urine Glucose (UA) (Negative) mg/dL Urine Ketones (Negative) Urine Blood (Negative) Urine Nitrite (Negative) Urine Bilirubin (Negative) Urine Urobilinogen (0.2) mg/dL Ur Leukocyte Esterase (Negative) U Hyaline Cast (Auto) (0-2) /LPF Urine Microscopic RBC (0-5) /HPF Urine Microscopic WBC (0-5) /HPF Ur Epithelial Cells (None Seen) /HPF Urine Bacteria (None Seen) /HPF Urine Culture Reflexed (NO) Monoscreen (NEGATIVE) Influenza Type A Ag NEGATIVE (NEGATIVE) Influenza Type B Ag NEGATIVE (NEGATIVE) RSV (PCR) NEGATIVE (NEGATIVE) SARS-CoV-2 (PCR) NEGATIVE (NEGATIVE) Group A Strep Antibody (NEGATIVE) Microbiology 12/10/22 Unknown C. difficile Toxin B Result 1 - Final Stool Not Reportable C. difficile Toxin B Result 2 - Final Not Reportable C. difficile Toxin B Result 3 - Final Not Reportable C. difficile Toxin B Result 4 - Final Not Reportable Antimicrobic Susceptibility - Final Not Reportable - Radiology Impressions Radiology Exams & Impressions: Radiology Procedures Category Date Time Status ABDOMEN AND PELVIS W/0 CONTRAS [CT] Stat Exams 12/10/22 05:10 Completed CHEST 1 VIEW (PORTABLE) Stat Exams 12/10/22 05:09 Taken Assessment/Plan (1) Pneumonia Current Visit: Yes Status: Acute Assessment & Plan: - daily CBC, CMP - Ceftriaxone and azihromycin IV daily - RT to eval and treat - BC x2 pending - Tele - Chest XR 12/10/22 Nonacute chest with chronic features - Chest CT 12/10/22 1. No acute intra-abdominal or pelvic pathology. 2. No definite evidence of abnormal bowel wall thickening or dilatation. 3. Scattered areas of subtle nodularity in the visualized right lung base, suggestive of infectious etiology. Clinical correlation and follow-up is advised. 4. Splenomegaly Code(s): J18.9 - PNEUMONIA, UNSPECIFIED ORGANISM (2) UTI (urinary tract infection) Current Visit: Yes Status: Acute Assessment & Plan: -UC pending - ceftriaxone daily IV Code(s): N39.0 - URINARY TRACT INFECTION, SITE NOT SPECIFIED (3) Neurogenic urinary bladder disorder Current Visit: Yes Status: Chronic Assessment & Plan: - Chronic - Place souza while IP - pt states she in and out caths 5-6 times daily Code(s): N31.9 - NEUROMUSCULAR DYSFUNCTION OF BLADDER, UNSPECIFIED (4) Diarrhea Current Visit: Yes Status: Acute Assessment & Plan: - IV fluid bouls x2 in ER - Stool sample lab pending - diarrhea has resolved for now - clear liquid diet - BR with BRP PPI: Protonix VTE: SCD's D/c plan: possibly tomorrow Next of Kin: Regan Henriquez [phone] Code(s): R19.7 - DIARRHEA, UNSPECIFIED
--- NOTE | 2022-12-10 08:37 | XRAY ---
Indication: Fever and cough. Comparison: March 31, 2013 Portable chest demonstrates new right mid lung suture material and minimal blunting right costophrenic angle. No focal infiltrate, consolidation, or large effusion. Heart remains borderline enlarged again with cardiac valve replacement and left dual-lead pacemaker. Bony thorax intact again with osteopenia and mild degenerative changes. Impression: Nonacute chest with chronic features.
[2022-12-10] MEDS ORDERED: ULTRAM 50 MG PO PRN (10:02)
[2022-12-10] MEDS: ROCEPHIN 1 Gm-D5w 50 ml Bag** 1 G/50 ML IVPB IV SCH (11:00)
[2022-12-10] MEDS ORDERED: DUONEB 0.5-3 MG/3 ml Neb IH PRN (11:27)
[2022-12-10] MEDS ORDERED: ULTRAM 50 MG ONE (12:26)
[2022-12-10] MEDS: Cymbalta 30 MG Capsule PO SCH (12:28)
[2022-12-10] MEDS: PROTONIX 40 MG IV IV SCH (12:28)
[2022-12-10] MEDS: BUSPAR 5 MG PO SCH (12:29)
[2022-12-10] MEDS: BUMEX 1 MG PO SCH (12:29)
[2022-12-10] MEDS ORDERED: MAG-OX 400 ONE (12:34)
[2022-12-10] MEDS: MAG-OX 400 PO SCH (12:35)
[2022-12-10] MEDS: BENTYL 20 MG PO SCH ×2 (13:52→15:58)
[2022-12-10] MEDS ORDERED: NON-FORMULARY ITEM (Gabapentin [Neurontin] 800 MG Tablet) PO SCH (15:00)
[2022-12-10] MEDS ORDERED: NON-FORMULARY ITEM (Ropinirole Hcl [Ropinirole Hcl] 3 MG Tablet) PO SCH (15:00)
[2022-12-10] MEDS: Neurontin PO SCH (15:58)
[2022-12-10] MEDS: PROAMATINE PO SCH (15:58)
[2022-12-10] MEDS: REQUIP 2MG TAB PO SCH (15:59)
[2022-12-10] MEDS: Advair Hfa 115/21 Common canister IH SCH (19:21)
[2022-12-10] MEDS ORDERED: NON-FORMULARY ITEM (Rosuvastatin Calcium [Rosuvastatin Calcium] 5 MG Tablet) PO SCH (22:00)
[2022-12-10] MEDS ORDERED: Zocor 10MG PO SCH (22:00)
[2022-12-10] MEDS ORDERED: DESYREL 50 MG PO SCH (22:00)
[2022-12-10] MEDS ORDERED: Singulair 10 MG PO SCH (22:00)
[2022-12-10] MEDS ORDERED: TOPIRAMATE PO SCH (22:00)
[2022-12-10] MEDS ORDERED: NON-FORMULARY ITEM (Topiramate 25 Mg*** [Topamax 25 Mg***] 25 MG Capsule) PO SCH (22:00)
[2022-12-11] MEDS: BENTYL 20 MG PO SCH ×2 (00:05→10:43)
[2022-12-11] MEDS: Neurontin PO SCH ×2 (00:06→10:44)
[2022-12-11] MEDS: PROAMATINE PO SCH ×2 (00:07→10:44)
[2022-12-11] MEDS: REQUIP 2MG TAB PO SCH ×2 (00:08→10:43)
[2022-12-11 05:00] LABS: Hematocrit 34.9 % (35-47); Hemoglobin 11.3 g/dL (12.0-16.0); Mean Corpuscular Hemoglobin 27.8 pg (26-32); Mean Corpuscular Hgb Concent. 32.4 g/dL (32-36); Mean Platelet Volume 8.8 fL (7.5-11.0); Platelet Count 177 x10^3/uL (150-450); Red Blood Count 4.06 x10^6/uL (4.1-5.4); Red Cell Distribution Width 13.9 % (11.5-14.0); White Blood Count 6.9 x10^3/uL (4.0-10.5)
[2022-12-11 05:21] LABS: ALBUMIN 3.9 g/dL (3.5-5.0); ALKALINE PHOSPHATASE 87 U/L (38-126); ANION GAP 10.6 MEQ/L (5-15); BLOOD UREA NITROGEN 9 mg/dL (7-17); CHLORIDE 108 mmol/L (98-107); Carbon Dioxide 25 mmol/L (22-30); Creatinine 1 0.48 mg/dL (0.52-1.04); EST GLOMERULAR FILTRATION RATE > 60.0 ML/MIN; Glucose 122 mg/dL (74-106); Potassium 3.6 mmol/L (3.5-5.1); SGOT/AST 18 U/L (14-36); SGPT/ALT 14 U/L (0-35); SODIUM 140 mmol/L (137-145); Total Protein 7.4 g/dL (6.3-8.2)
[2022-12-11 06:42] VITALS: BP 123/64; TEMP 97.5
[2022-12-11] MEDS: Advair Hfa 115/21 Common canister IH SCH (07:42)
[2022-12-11 07:46] VITALS: PULSE 87; RESP 18; O2SAT 97
[2022-12-11] MEDS ORDERED: Vitamin B-12 500 MCG PO SCH (10:00)
[2022-12-11] MEDS ORDERED: NON-FORMULARY ITEM (Duloxetine Hcl [Duloxetine Hcl] 60 MG Capsule.Dr) PO SCH (10:00)
[2022-12-11] MEDS ORDERED: Zithromax 500 MG/ 250 ML NaCl Premix 500 MG/250 ML IVPB IV SCH (10:00)
[2022-12-11] MEDS ORDERED: NON-FORMULARY ITEM (Magnesium [Magnesium] 200 MG Tablet) PO SCH (10:00)
[2022-12-11] MEDS: ROCEPHIN 1 Gm-D5w 50 ml Bag** 1 G/50 ML IVPB IV SCH (10:36)
[2022-12-11] MEDS: MAG-OX 400 PO SCH (10:41)
[2022-12-11] MEDS: BUMEX 1 MG PO SCH (10:42)
[2022-12-11] MEDS ORDERED: Docusate Sodium 100 MG PO ONE (10:43)
[2022-12-11] MEDS: BUSPAR 5 MG PO SCH (10:44)
[2022-12-11] MEDS: Cymbalta 30 MG Capsule PO SCH (10:45)
[2022-12-11] MEDS: PROTONIX 40 MG IV IV SCH (10:46)
--- NOTE | 2022-12-11 10:53 | PCM.DS ---
Discharge Summary Date of Admission: 12/10/22 08:40 Date of Discharge: 12/11/22 Admitting Physician: NINA NEWMAN MD Primary Care Provider: WILFREDO,MELCHOR Allergies Allergies latex Allergy (Intermediate, Verified 12/10/22 15:58) Hives amoxicillin trihydrate [From Augmentin] Allergy (Mild, Verified 12/10/22 15:58) potassium clavula *RETIRED-08/06/12 [From Augmentin] Allergy (Mild, Verified 12/10/22 15:58) Sulfa (Sulfonamide Antibiotics) [Sulfa(Sulfonamide Antibiotics)] Allergy (Mild, Verified 12/10/22 15:58) sulfamethoxazole [From Bactrim] Allergy (Mild, Verified 12/10/22 15:58) trimethoprim [From Bactrim] Allergy (Mild, Verified 12/10/22 15:58) rofecoxib [From Vioxx] Allergy (Verified 12/10/22 15:58) Nausea and Vomiting Hospital Summary - Hospital Course Hospital Course: is a 62 year old female with hx of pacemaker, heart valve replacement ( mitral and pulmonary valve), CHF, POTS, neurogenic bladder, diverticulitis, asthma, COPD, migranes, neuropathy, RLS, depression and anxiety. She has used a CPAP in the past for sleep apnea but no longer uses this as she lost the machine. Pt states that on 12/07/22 at approx 0100 she woke up with a fever of 101.1 this was accompanied by a cough, chest/ nasal congestion, and diarrhea. Reports diarrhea of brown liquid stool approx 5x/day. Diarrhea has now stopped and pt explains she used Pepto- bismol for her sxs with relief. She reports a cough with green sputum production but not able to get much up. She also started noticing bilat lower extremity muscle aches that have remained unchanged despite applying her compression socks. In the ER it appears she received 2 fluid boluses, flagyl, levaquin, and azithromycin. She also recievd nausea and pain medication. She is no longer having diarrhea and now having solid stools. She is feeling much better this morning and would like to go home. Urine and blood cultures were negative. She is is requesting a one time dose of stool softener today. Will d/c on oral antibiotics. She denies any further concerns at this time. PCP: Dr. Scott Cardiology: Dr. Camacho Pulmonology: Dr. Lincoln - Vitals & Intake/Output Vital Signs: Vital Signs Temperature 97.5 F 12/11/22 06:41 Pulse Rate 87 12/11/22 07:44 Respiratory Rate 18 12/11/22 07:44 Blood Pressure 123/64 12/11/22 06:41 O2 Sat by Pulse Oximetry 97 12/11/22 07:44 Intake & Output: Intake & Output 12/08/22 12/09/22 12/10/22 12/11/22 11:59 11:59 11:59 11:59 Intake Total 120 780 Output Total 2800 Balance 120 -2020 Weight 74.5 kg - Lab Result Diagrams: 12/11/22 04:54 12/11/22 04:54 Lab Results-Last 24 Hrs: Lab Results-Last 24 Hours 12/11/22 12/11/22 Range/Units 04:54 04:54 WBC 6.9 (4.0-10.5) x10^3/uL RBC 4.06 L (4.1-5.4) x10^6/uL Hgb 11.3 L (12.0-16.0) g/dL Hct 34.9 L (35-47) % MCV 86.0 (78-100) fL MCH 27.8 (26-32) pg MCHC 32.4 (32-36) g/dL RDW 13.9 (11.5-14.0) % Plt Count 177 (150-450) x10^3/uL MPV 8.8 (7.5-11.0) fL Sodium 140 (137-145) mmol/L Potassium 3.6 (3.5-5.1) mmol/L Chloride 108 H (98-107) mmol/L Carbon Dioxide 25 (22-30) mmol/L Anion Gap 10.6 (5-15) MEQ/L BUN 9 (7-17) mg/dL Creatinine 0.48 L (0.52-1.04) mg/dL Estimated GFR > 60.0 ML/MIN Glucose 122 H (74-106) mg/dL Calcium 9.0 (8.4-10.2) mg/dL Total Bilirubin 0.30 (0.2-1.3) mg/dL AST 18 (14-36) U/L ALT 14 (0-35) U/L Alkaline Phosphatase 87 (38-126) U/L Serum Total Protein 7.4 (6.3-8.2) g/dL Albumin 3.9 (3.5-5.0) g/dL Micro Results-Entire Visit: Microbiology 12/10/22 05:15 Urine Culture - Final Urine, Catheterized NO GROWTH 12/10/22 05:58 Blood Culture - Preliminary Blood 12/10/22 06:06 Blood Culture - Preliminary Blood 12/10/22 Unknown C. difficile Toxin B Result 1 - Final Stool Not Reportable C. difficile Toxin B Result 2 - Final Not Reportable C. difficile Toxin B Result 3 - Final Not Reportable C. difficile Toxin B Result 4 - Final Not Reportable Antimicrobic Susceptibility - Final Not Reportable - Radiology Exams Ordered Rad Exams-Entire Visit: Radiology Procedures Category Date Time Status ABDOMEN AND PELVIS W/0 CONTRAS [CT] Stat Exams 12/10/22 05:10 Completed CHEST 1 VIEW (PORTABLE) Stat Exams 12/10/22 05:09 Completed - Procedures and Test Procedures and Tests throughout Hospitalization: Therapy Orders & Screens 12/10/22 08:58 Respiratory Therapy Consult ROUTINE Comment: Reason For Exam: Diagnosis: pneumonia 12/10/22 11:13 PT Eval & Treat (MD Order) ONCE Reason for Eval:: Pt is wanting a home rollater. Has a hx of POTS. Diagnosis: pneumonia 12/11/22 07:00 Oxygen Oxymizer LPM 2 lpm Comment: Diagnosis: pneumonia Discharge Exam General Appearance: no apparent distress, alert Neurologic Exam: alert, oriented x 3, cooperative, normal mood/affect, nml cerebellar function, sensation nml, No motor deficits Eye Exam: PERRL, EOMI, eyes nml inspection Ears, Nose, Throat Exam: normal ENT inspection, pharynx normal, moist mucous membranes Neck Exam: normal inspection, non-tender, supple, full range of motion Respiratory Exam: normal breath sounds, lungs clear, No respiratory distress Cardiovascular Exam: regular rate/rhythm, normal heart sounds Gastrointestinal/Abdomen Exam: soft, No tenderness, No mass Pelvic Exam: deferred Rectal Exam: deferred Back Exam: normal inspection, normal range of motion, No CVA tenderness, No vertebral tenderness Extremity Exam: normal inspection, normal range of motion Skin Exam: normal color, warm, dry Final Diagnosis/Problem List - Final Discharge Diagnosis/Problem (1) Pneumonia Current Visit: Yes Status: Acute Assessment & Plan: - daily CBC, CMP - Ceftriaxone and azihromycin IV daily - RT to eval and treat - BC x2 pending - Tele - Chest XR 12/10/22 Nonacute chest with chronic features - Chest CT 12/10/22 1. No acute intra-abdominal or pelvic pathology. 2. No definite evidence of abnormal bowel wall thickening or dilatation. 3. Scattered areas of subtle nodularity in the visualized right lung base, suggestive of infectious etiology. Clinical correlation and follow-up is advised. 4. Splenomegaly Code(s): J18.9 - PNEUMONIA, UNSPECIFIED ORGANISM (2) UTI (urinary tract infection) Current Visit: Yes Status: Acute Assessment & Plan: -UC negative - ceftriaxone daily IV Code(s): N39.0 - URINARY TRACT INFECTION, SITE NOT SPECIFIED (3) Neurogenic urinary bladder disorder Current Visit: Yes Status: Chronic Assessment & Plan: - Chronic - Place souza while IP - pt states she in and out caths 5-6 times daily Code(s): N31.9 - NEUROMUSCULAR DYSFUNCTION OF BLADDER, UNSPECIFIED (4) Diarrhea Current Visit: Yes Status: Acute Assessment & Plan: - IV fluid bouls x2 in ER - Stool sample cancelled as stool is now solid - diarrhea has resolved - clear liquid diet- advanced - BR with BRP Code(s): R19.7 - DIARRHEA, UNSPECIFIED - Discharge Discharge Date: 12/11/22 Disposition: Home, Self-Care Condition: Stable Prescriptions: New Fluticasone/Salmeterol 115/21 [Advair Hfa 115/21 Common canister*] 2 puff IH BIDRT #1 inhaler Azithromycin [Azithromycin 250 mg Pack] 250 mg PO DAILY 5 Days #1 packet Continue Montelukast Sodium 10 mg [Singulair 10 MG] 10 mg PO HS Cyanocobalamin (Vitamin B-12) [Vitamin B-12] 1,000 mcg PO DAILY Dicyclomine HCl 20 mg [Bentyl 20 mg] 20 mg PO QID Duloxetine HCl 60 mg PO DAILY Pantoprazole 40 mg [Protonix 40 mg IV] 40 mg PO DAILY Ropinirole HCl 3 mg PO TID Rosuvastatin Calcium 5 mg PO HS Trazodone HCl 50 mg [Desyrel 50 mg] 50 mg PO HS Gabapentin [Neurontin] 800 mg PO TID Midodrine HCl 5 mg PO TID Buspirone HCl 5 mg [Buspar 5 mg] 10 mg PO DAILY Bumetanide 1 mg [Bumex 1 mg] 1 mg PO DAILY Tramadol HCl 50 mg [Ultram 50 mg] 50 mg PO Q12H PRN PRN Reason: Pain Magnesium 400 mg PO DAILY Topiramate 25 mg [Topamax 25 MG] 25 mg PO HS Additional Instructions: [facility] HAS BEEN SET UP. THEY WILL CONTACT YOU TO ARRANGE A TIME TO COME VISIT. THEIR PHONE NUMBER IS [phone] IF YOU NEED ANYTHING PRIOR TO THEIR FIRST VISIT IF INTERESTED IN MEDICAID, CONTACT INSURANCE NAVIGATOR, JEREMY FRIAS AT [phone] Follow up with: MELCHOR VILLALOBOS MD [Primary Care Provider] -
== END 2022-12-11 12:53 | disposition home health service (06) ==
LOC: MERGE 04:24 → ED 04:24 → UNMERGE 04:24 → MED SURG 08:40
PROVIDERS: ADMIT Internal Medicine; ATTEND Internal Medicine
DX: J18.9 Pneumonia, unspecified organism (principal); N39.0 Urinary tract infection, site not specified; N31.9 Neuromuscular dysfunction of bladder, unspecified; R19.7 Diarrhea, unspecified; I50.9 Heart failure, unspecified; E78.5 Hyperlipidemia, unspecified; Z85.41 Personal history of malignant neoplasm of cervix uteri; Z79.899 Other long term (current) drug therapy; Z20.828 Contact with and (suspected) exposure to other viral communicable diseases
CPT/HCPCS: 0241U; 36000; 36415; 71045; 74176; 80053; 81001; 82150; 83605; 83690; 85025; 85027; 86308; 87040; 87086; 87651; 93268; 94640; 94762; 96360; 96365; 96367; 96374; 96375; 97161; 99285; G0378; Q3014; J0456; J0696; J1956; J2405; J2930; A9270-GY

== ENCOUNTER 2022-12-15 13:16 | Emergency (ER) | payer MEDICARE ==
[2022-12-15 13:40] VITALS: TEMP 96.7
--- NOTE | 2022-12-15 13:45 | ERPHSYRPT ---
- History of Present Illness Time Seen by Provider: 12/15/22 13:45 Historian: patient Exam Limitations: no limitations Patient Subjective Stated Complaint: C/O lower abdominal pain with black stools that started around 0400 yesterday morning Triage Nursing Assessment: Patient ambulated back to ER with her rolling walker. She is alert and oriented. No SOB. No Cough. Skin tone normal. Bowel sounds present. Physician History: This is a morbidly obese 62-year-old white female patient of Dr. Villalobos and presents with black tarry stools and bilateral lower quadrant abdominal crampy pain. Patient was seen by me in the emergency department on 12/02/2022 and admitted for treatment of pneumonia. She was discharged home on 12/11/2022. I reviewed the patient's inpatient chart. Patient was discharged to home with a steroid inhaler and a Z-Nabil. She completed the Z-Nabil antibiotic yesterday. Patient has had an appendectomy, cholecystectomy and hysterectomy in the past. Patient does have a history of Crohn's disease. 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 Patient moved to [facility] 3 months ago. Patient currently denies chest pain. She does not have shortness of breath. Patient has a history of arrhythmias, COPD, Crohn's disease, RLS, valve replacement, gastroesophageal reflux disease, hyperlipidemia and CHF. Patient's hemoglobin at discharge on 12/11/2022 was 11.3. She had a white count of 6.9 and a platelet count of 177. She denies use of Pepto-Bismol. Timing/Duration: day(s) Activities at Onset: none Quality: cramping (Mild bilateral lower quadrant) Abdominal Pain Onset Location: RLQ, LLQ Pain Radiation: no radiation Severity of Pain-Max: mild Modifying Factors: Improves With: nothing Associated Symptoms: nausea, vomiting (X1 yesterday) Previous symptoms: no prior history, recently seen, recent hospitalization, recently treated Allergies/Adverse Reactions: latex Allergy (Intermediate, Verified 12/15/22 13:25) Hives amoxicillin trihydrate [From Augmentin] Allergy (Mild, Verified 12/15/22 13:25) potassium clavula *RETIRED-08/06/12 [From Augmentin] Allergy (Mild, Verified 12/15/22 13:25) Sulfa (Sulfonamide Antibiotics) [Sulfa(Sulfonamide Antibiotics)] Allergy (Mild, Verified 12/15/22 13:25) sulfamethoxazole [From Bactrim] Allergy (Mild, Verified 12/15/22 13:25) trimethoprim [From Bactrim] Allergy (Mild, Verified 12/15/22 13:25) rofecoxib [From Vioxx] Allergy (Verified 12/15/22 13:25) Nausea and Vomiting Home Medications: Montelukast Sodium 10 mg [Singulair 10 MG] 10 mg PO HS 09/07/11 [History] Cyanocobalamin (Vitamin B-12) [Vitamin B-12] 1,000 mcg PO DAILY 03/31/13 [History] Bumetanide 1 mg [Bumex 1 mg] 1 mg PO DAILY 12/10/22 [History] Buspirone HCl 5 mg [Buspar 5 mg] 10 mg PO BID 12/10/22 [History] Dicyclomine HCl 20 mg [Bentyl 20 mg] 20 mg PO QID 12/10/22 [History] Duloxetine HCl 60 mg PO DAILY 12/10/22 [History] Gabapentin [Neurontin] 800 mg PO TID 12/10/22 [History] Magnesium 400 mg PO DAILY 12/10/22 [History] Midodrine HCl 5 mg PO TID 12/10/22 [History] Ropinirole HCl 3 mg PO TID 12/10/22 [History] Rosuvastatin Calcium 5 mg PO HS 12/10/22 [History] Topiramate 25 mg [Topamax 25 MG] 25 mg PO HS 12/10/22 [History] Trazodone HCl 50 mg [Desyrel 50 mg] 100 mg PO HS 12/10/22 [History] PANTOPRAZOLE 40 mg Tablet [Protonix 40MG Tablet] 1 tab PO DAILY 12/15/22 [History] Hx Tetanus, Diphtheria Vaccination/Date Given: Yes Hx Influenza Vaccination/Date Given: No Hx Pneumococcal Vaccination/Date Given: Yes Immunizations Up to Date: Yes Travel Risk - International Travel Have you traveled outside of the country in past 3 weeks: No - Coronavirus Screening Are you exhibiting any of the following symptoms?: No Close contact with a COVID-19 positive Pt in past 14-21 Days: No - Vaccine Status Have you recieved a Covid-19 vaccination: Yes 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 - Vaccination Dates Date of 2cond Vaccination (if applicable): 07/21/2020 - Review of Systems Constitutional: No Symptoms Eyes: No Symptoms Ears, Nose, & Throat: No Symptoms Respiratory: No Symptoms Cardiac: No Symptoms Abdominal/Gastrointestinal: Abdominal Pain (Bilateral lower quadrant cramping (mild)), Other (Black stool) Genitourinary Symptoms: No Symptoms Musculoskeletal: No Symptoms Skin: No Symptoms Neurological: No Symptoms Psychological: No Symptoms Endocrine: No Symptoms Hematologic/Lymphatic: No Symptoms Immunological/Allergic: No Symptoms All Other Systems: Reviewed and Negative - Past Medical History Pertinent Past Medical History: Yes Neurological History: Peripheral Neuropathy, Other ENT History: No Pertinent History Cardiac History: Arrhythmia, Congestive Heart Failure, High Cholesterol, Other Respiratory History: Sleep Apnea, CHF, COPD, Asthma, Bronchitis, Pneumonia Endocrine Medical History: No Pertinent History Musculoskeletal History: Other, Arthritis, Rheumatoid Arthritis, Osteoarthritis, Fibromyalgia GI Medical History: Diverticulitis, Other History: Other Psycho-Social History: Anxiety, Depression Female Reproductive Disorders: Cervical Cancer Other Medical History: POTS, RLS, PPM, Afib, IBS, neurogenic bladder (self cath at home PRN), scoliosis, neuropathy - Past Surgical History Past Surgical History: Yes Neuro Surgical History: No Pertinent History Cardiac: CABG, Valve Replacement, Vascular Surgery, Cardiac Catheterization, Pacemaker Respiratory: No Pertinent History, Other Gastrointestinal: Appendectomy, Cholecystectomy Genitourinary: No Pertinent History Musculoskeletal: Joint Replacement, Other Female Surgical History: Hysterectomy Other Surgical History: "drained fluid from left lung" , spacers in bilat hips. left knee replacement, valve replacement - Social History Smoking Status: Former smoker How long have you smoked: 6 Exposure to second hand smoke: No Drug Use: none Patient Lives Alone: Yes - Nursing Vital Signs Nursing Vital Signs: Initial Vital Signs Temperature 96.7 F 12/15/22 13:16 Pulse Rate 78 12/15/22 13:16 Respiratory Rate 16 12/15/22 13:16 Blood Pressure 119/83 12/15/22 13:16 O2 Sat by Pulse Oximetry 98 12/15/22 13:16 Pain Scale Pain Intensity 6 - Physical Exam General Appearance: no apparent distress, alert, anxiety, obese Eye Exam: PERRL/EOMI, eyes nml inspection Ears, Nose, Throat Exam: normal ENT inspection, moist mucous membranes Neck Exam: normal inspection, non-tender, supple, full range of motion Respiratory Exam: normal breath sounds, lungs clear, airway intact, No chest tenderness, No respiratory distress Cardiovascular Exam: regular rate/rhythm, normal heart sounds, normal peripheral pulses Gastrointestinal/Abdomen Exam: soft, normal bowel sounds, No tenderness Pelvic Exam: not done Rectal Exam: not done Back Exam: normal inspection, normal range of motion, No CVA tenderness, No vertebral tenderness Extremity Exam: normal inspection, normal range of motion, pelvis stable Neurologic Exam: alert, oriented x 3, cooperative, senior safety management consultant II-XII nml as tested, normal mood/affect, nml cerebellar function, nml station & gait, sensation nml Skin Exam: normal color, warm, dry Lymphatic Exam: No adenopathy SpO2 Interpretation: normal SpO2: 98 O2 Delivery: Room Air - Course Nursing assessment & vital signs reviewed: Yes Ordered Tests: Active Orders 24 hr Category Date Time Status IV Insertion STAT Care 12/15/22 13:45 Active ABDOMEN AND PELVIS W/0 CONTRAS [CT] Stat Exams 12/15/22 13:46 Completed AMYLASE Stat Lab 12/15/22 14:05 Completed CBC W DIFF Stat Lab 12/15/22 14:05 Completed CMP Stat Lab 12/15/22 14:05 Completed LIPASE Stat Lab 12/15/22 14:05 Completed Lactic Acid Stat Lab 12/15/22 13:45 Completed UA W/RFX UR CULTURE Stat Lab 12/15/22 13:45 Ordered Medication Summary Discontinued Medications Generic Name Dose Route Start Last Admin Trade Name Pricilla PRN Reason Stop Dose Admin Hydromorphone HCl 1 mg 12/15/22 15:19 12/15/22 15:31 Hydromorphone 1 Mg/1ml Inj IM 12/15/22 15:20 1 mg STAT ONE Administration Hydromorphone HCl Confirm 12/15/22 15:30 Hydromorphone 1 Mg/1ml Inj Administered 12/15/22 15:31 Dose 1 mg .ROUTE .STK-MED ONE Sodium Chloride 1,000 mls @ 999 mls/hr 12/15/22 13:45 12/15/22 14:32 Sodium Chloride 0.9% 1000 Ml IV 12/15/22 14:45 999 mls/hr .Q1H1M STA Administration Sodium Chloride Confirm 12/15/22 14:31 Sodium Chloride 0.9% 1000 Ml Administered 12/15/22 14:32 Dose 1,000 mls @ ud .ROUTE .STK-MED ONE Ondansetron HCl 4 mg 12/15/22 15:19 12/15/22 15:31 Zofran 4 Mg/Udtablet Orally Disintegrating PO 12/15/22 15:20 4 mg STAT ONE Administration Ondansetron HCl Confirm 12/15/22 15:30 Zofran 4 Mg/Udtablet Orally Disintegrating Administered 12/15/22 15:31 Dose 4 mg .ROUTE .STK-MED ONE Lab/Rad Data: Laboratory Result Diagrams 12/15/22 14:05 12/15/22 14:05 Laboratory Results 12/15/22 12/15/22 12/15/22 Range/Units 14:05 14:05 13:45 WBC 6.8 (4.0-10.5) x10^3/uL RBC 4.43 (4.1-5.4) x10^6/uL Hgb 12.3 (12.0-16.0) g/dL Hct 41.0 (35-47) % MCV 92.6 (78-100) fL MCH 27.8 (26-32) pg MCHC 30.0 L (32-36) g/dL RDW 13.7 (11.5-14.0) % Plt Count 204 (150-450) x10^3/uL MPV 9.0 (7.5-11.0) fL Gran % 63.3 (36.0-66.0) % Immature Gran % (Auto) 0.6 H (0.00-0.4) % Nucleat RBC Rel Count 0.0 (0.00-0.1) % Eos # (Auto) 0 (0-0.5) x10^3/uL Immature Gran # (Auto) 0.04 H (0.00-0.03) x10^3u/L Absolute Lymphs (auto) 2.01 (1.0-4.6) x10^3/uL Absolute Monos (auto) 0.45 (0.0-1.3) x10^3/uL Absolute Nucleated RBC 0.00 (0.00-0.01) x10^3u/L Lymphocytes % 29.4 (24.0-44.0) % Monocytes % 6.6 (0.0-12.0) % Eosinophils % 0.0 (0.00-5.0) % Basophils % 0.1 (0.0-0.4) % Absolute Granulocytes 4.32 (1.4-6.9) x10^3/uL Basophils # 0.01 (0-0.4) x10^3/uL Sodium 137 (137-145) mmol/L Potassium 3.9 (3.5-5.1) mmol/L Chloride 104 (98-107) mmol/L Carbon Dioxide 25 (22-30) mmol/L Anion Gap 12.3 (5-15) MEQ/L BUN 15 (7-17) mg/dL Creatinine 0.68 (0.52-1.04) mg/dL Estimated GFR > 60.0 ML/MIN Glucose 108 H (74-106) mg/dL Lactic Acid 0.7 (0.4-2.0) Calcium 9.1 (8.4-10.2) mg/dL Total Bilirubin 0.40 (0.2-1.3) mg/dL AST 25 (14-36) U/L ALT 17 (0-35) U/L Alkaline Phosphatase 102 (38-126) U/L Serum Total Protein 7.9 (6.3-8.2) g/dL Albumin 4.2 (3.5-5.0) g/dL Amylase 82 (30-110) U/L Lipase 96 (23-300) U/L - Progress Progress: unchanged, re-examined Progress Note: 12/15/22 15:14 This patient's medical issue is 1 of moderate complexity. Level complexity in the work-up performed is based on review of the patient's past medical history, review the patient's medication list, review the patient's drug allergy list, history present illness and physical finds on examination. This patient's work- up includes CBC, CMP, urinalysis, lactic acid level, CT scan of the abdomen pelvis. I did order an intravenous line placement. However they are having trouble obtaining peripheral IV access. 12/15/22 15:49 CT scan of the abdomen pelvis without contrast shows no significant abnormality within the abdomen or pelvis. The patient is hemodynamically stable. She has no active bleeding rectally. She has mild nausea symptoms. Her pain is mild. She has no acute, emergent findings on her work-up here in the emergency department. I will discharge her to home with a prescription for Zofran. She can use Tylenol and ibuprofen if there are no contraindications in doing so. She has an appointment to see her primary care provider on 12/18/2022. Counseled pt/family regarding: lab results, diagnosis, need for follow-up, rad results Medical Desision Making - Independent Historian Additional History obtained from: Relative/friend - Diagnostic Testing Diagnostic test were ordered, analyzed, and reviewed by me: Yes Radiological Interpretation: Reviewed by me, Teleradiologist Report - Risk of complications The pt has a mod risk of morbidity or mortality based on: Need for prescription drug management - Departure Departure Disposition: Home Clinical Impression: Black stools, Abdominal pain, bilateral lower quadrant Condition: Stable Critical Care Time: No Referrals: MELCHOR VILLALOBOS MD [Primary Care Provider] - Follow up/PCP as directed Additional Instructions: Drink plenty of fluids. Use Tylenol and ibuprofen (if there are no contraindications to do so) for pain control. Take your medication as prescribed. Keep your appointment with your primary care physician on 12/18/2022. Return to the emergency department symptoms worsen Prescriptions: Ondansetron ODT 4 MG [Zofran Odt 4 mg] 4 mg PO Q6H PRN PRN #10 tablet PRN Reason: Vomiting
[2022-12-15 14:17] LABS: Absolute Neutrophil Ct (ANC) 4.32 x10^3/uL (1.4-6.9); BASOPHIL % 0.1 % (0.0-0.4); Basophil (Absolute #) 0.01 x10^3/uL (0-0.4); Eosinophil (Absolute #) 0 x10^3/uL (0-0.5); Hemoglobin 12.3 g/dL (12.0-16.0); IMMATURE GRAN # 0.04 x10^3u/L (0.00-0.03); IMMATURE GRAN % 0.6 % (0.00-0.4); Lymphocyte (Absolute #) 2.01 x10^3/uL (1.0-4.6); Lymphocytes % 29.4 % (24.0-44.0); Mean Cell Volume 92.6 fL (78-100); Mean Corpuscular Hemoglobin 27.8 pg (26-32); Monocyte (Absolute #) 0.45 x10^3/uL (0.0-1.3); Monocytes % 6.6 % (0.0-12.0); Neutrophil % 63.3 % (36.0-66.0); Platelet Count 204 x10^3/uL (150-450); Red Blood Count 4.43 x10^6/uL (4.1-5.4); Red Cell Distribution Width 13.7 % (11.5-14.0); White Blood Count 6.8 x10^3/uL (4.0-10.5)
[2022-12-15 14:31] LABS: ALBUMIN 4.2 g/dL (3.5-5.0); ALKALINE PHOSPHATASE 102 U/L (38-126); AMYLASE 82 U/L (30-110); ANION GAP 12.3 MEQ/L (5-15); BLOOD UREA NITROGEN 15 mg/dL (7-17); CHLORIDE 104 mmol/L (98-107); Calcium 9.1 mg/dL (8.4-10.2); Carbon Dioxide 25 mmol/L (22-30); Creatinine 1 0.68 mg/dL (0.52-1.04); EST GLOMERULAR FILTRATION RATE > 60.0 ML/MIN; Glucose 108 mg/dL (74-106); LIPASE 96 U/L (23-300); Potassium 3.9 mmol/L (3.5-5.1); SGOT/AST 25 U/L (14-36); SGPT/ALT 17 U/L (0-35); SODIUM 137 mmol/L (137-145); Total Protein 7.9 g/dL (6.3-8.2)
[2022-12-15] MEDS ORDERED: Sodium Chloride 0.9% 1000 ML 0 ML ONE (14:31)
[2022-12-15] MEDS: Sodium Chloride 0.9% 1000 ML 1,000 ML IV STA ×2 (14:32→16:14)
[2022-12-15] MEDS ORDERED: ZOFRAN ODT 4 MG PO ONE (15:19)
[2022-12-15] MEDS ORDERED: Hydromorphone 1 mg/ml Injection IM ONE (15:19)
[2022-12-15] MEDS ORDERED: ZOFRAN ODT 4 MG ONE (15:30)
[2022-12-15] MEDS ORDERED: Hydromorphone 1 mg/ml Injection ONE (15:30)
--- NOTE | 2022-12-15 15:32 | XRAY ---
CLINICAL HISTORY:Lower ABD pain; black stools COMPARISON:None. TECHNIQUE:A CT scan of the abdomen and pelvis was performed without IV contrast. Coronal and sagittal reconstructive images were also obtained. FINDINGS: The liver is normal in size. No focal or diffuse parenchymal abnormality. The portal vein, intrahepatic biliary radicals, and the bile ducts are normal. The spleen, pancreas, and adrenal glands are unremarkable. The kidneys are unremarkable. They are normal in size and shape. No calculi or hydronephrosis. 1.6 X 1.8 cm exophytic cyst seen in the right kidney. Status post cholecystectomy. visualized small and large bowel loops appear unremarkable. There is no evidence of significant enlargement of the mesenteric or retroperitoneal lymph nodes. The urinary bladder is unremarkable. The rectosigmoid colon is unremarkable. No evidence of pelvic lymphadenopathy. The uterus is not identified? Hysterectomy. Metallic hardware was seen projected over the left sacroiliac joint causing streak artifact obscuring fine detail, no loosening or break was seen. Mild degenerative changes are seen in the visualized spine. The well-defined rounded hypodense area seen in the T10 vertebra is likely benign/hemangioma. Visualized lung bases appear unremarkable. A partially visualized cardiac Pacemaker is seen in place with visualized intact wires. Sternotomy sutures noted. IMPRESSION: No significant abnormalities in the CT scan abdomen and pelvis without contrast. Electronically Signed by: Beck Christina MD. (12/15/2022 14:32:12 SOLE LAYER)
[2022-12-15 16:21] VITALS: BP 93/51; PULSE 77; RESP 21; O2SAT 97
== END 2022-12-15 16:41 | disposition home or self-care (01) ==
LOC: ED 13:16
DX: K92.1 Melena (principal); R10.31 Right lower quadrant pain; R10.32 Left lower quadrant pain; E78.5 Hyperlipidemia, unspecified; Z79.899 Other long term (current) drug therapy
CPT/HCPCS: 36415; 74176; 80053; 82150; 83605; 83690; 85025; 96372; 99284; J1170; Q0162

== ENCOUNTER 2023-02-17 14:01 | Emergency (ER) | payer MEDICARE ==
[2023-02-17] MEDS ORDERED: DUONEB 0.5-3 MG/3 ml Neb IH ONE ×2 (15:02→15:10)
--- NOTE | 2023-02-17 15:09 | ERPHSYRPT ---
- History of Present Illness Time Seen by Provider: 02/17/23 14:13 Source: patient Exam Limitations: no limitations Patient Subjective Stated Complaint: C/O cough for 2 days. No fever. Has back pain now when coughing. Triage Nursing Assessment: Patient ambulated back to ER wearing a mask. She is alert and oriented. Non-productive cough is present. NO SOB. Runny nose; clear nasal drainage. Patient with a forceful cough when taking a deep breath to auscultate lung sounds. No abnormal lung sounds noted during assessment but difficult to assess. TRUE GUTIERREZ. Physician History: 62 years old female with history of COPD, valvular replacement presented in the ER with chief complaint of cough congestion with subjective feeling of fever chills for the last couple of days with progressive worsening. Patient reported initially she was coughing up rodarte to yellow sputum and now it is a dry cough with body aches. No known sick contact. Denies any chest pain or palpitations/shortness of breath but what she has at her baseline. Allergies/Adverse Reactions: latex Allergy (Intermediate, Verified 02/17/23 14:17) Hives amoxicillin trihydrate [From Augmentin] Allergy (Mild, Verified 02/17/23 14:17) potassium clavula *RETIRED-08/06/12 [From Augmentin] Allergy (Mild, Verified 02/17/23 14:17) Sulfa (Sulfonamide Antibiotics) [Sulfa(Sulfonamide Antibiotics)] Allergy (Mild, Verified 02/17/23 14:17) sulfamethoxazole [From Bactrim] Allergy (Mild, Verified 02/17/23 14:17) trimethoprim [From Bactrim] Allergy (Mild, Verified 02/17/23 14:17) rofecoxib [From Vioxx] Allergy (Verified 02/17/23 14:17) Nausea and Vomiting Home Medications: Montelukast Sodium 10 mg [Singulair 10 MG] 10 mg PO HS 09/07/11 [History] Cyanocobalamin (Vitamin B-12) [Vitamin B-12] 1,000 mcg PO DAILY 03/31/13 [History] Bumetanide 1 mg [Bumex 1 mg] 1 mg PO DAILY 12/10/22 [History] Buspirone HCl 5 mg [Buspar 5 mg] 10 mg PO DAILY 12/10/22 [History] Dicyclomine HCl 20 mg [Bentyl 20 mg] 20 mg PO QID 12/10/22 [History] Duloxetine HCl 60 mg PO DAILY 12/10/22 [History] Gabapentin [Neurontin] 800 mg PO TID 12/10/22 [History] Magnesium 400 mg PO DAILY 12/10/22 [History] Midodrine HCl 5 mg PO TID 12/10/22 [History] Ropinirole HCl 3 mg PO HS 12/10/22 [History] Rosuvastatin Calcium 5 mg PO HS 12/10/22 [History] Topiramate 25 mg [Topamax 25 MG] 25 mg PO HS 12/10/22 [History] Trazodone HCl 50 mg [Desyrel 50 mg] 100 mg PO HS 12/10/22 [History] PANTOPRAZOLE 40 mg Tablet [Protonix 40MG Tablet] 1 tab PO DAILY 12/15/22 [History] Tramadol HCl 50 mg [Ultram 50 mg] 1 tab PO BID PRN 02/17/23 [History] Hx Tetanus, Diphtheria Vaccination/Date Given: Yes Hx Influenza Vaccination/Date Given: Yes Hx Pneumococcal Vaccination/Date Given: Yes Immunizations Up to Date: Yes Travel Risk - International Travel Have you traveled outside of the country in past 3 weeks: No - Coronavirus Screening Are you exhibiting any of the following symptoms?: Yes Symptoms: Cough: New Onset, Shortness of Breath Close contact with a COVID-19 positive Pt in past 14-21 Days: No - Vaccine Status Have you recieved a Covid-19 vaccination: Yes Lien Searcher: E Ink - Vaccination Dates Date of 2cond Vaccination (if applicable): 07/21/2020 - Review of Systems Constitutional: Fever, Chills, Fatigue Eyes: No Symptoms Ears, Nose, & Throat: Nose Congestion, Throat Pain Respiratory: Cough Cardiac: No Symptoms Abdominal/Gastrointestinal: No Symptoms Genitourinary Symptoms: No Symptoms Musculoskeletal: Myalgias Skin: No Symptoms Neurological: No Symptoms Endocrine: No Symptoms Hematologic/Lymphatic: No Symptoms - Past Medical History Pertinent Past Medical History: Yes Neurological History: Peripheral Neuropathy, Other ENT History: No Pertinent History Cardiac History: Arrhythmia, Congestive Heart Failure, High Cholesterol, Other Respiratory History: Sleep Apnea, CHF, COPD, Asthma, Bronchitis, Pneumonia Endocrine Medical History: No Pertinent History Musculoskeletal History: Other, Arthritis, Rheumatoid Arthritis, Osteoarthritis, Fibromyalgia GI Medical History: Diverticulitis, Gallbladder Disease, Other History: Other Psycho-Social History: Anxiety, Depression Female Reproductive Disorders: Cervical Cancer Other Medical History: POTS, RLS, PPM, Afib, IBS, neurogenic bladder (self cath at home PRN), scoliosis, neuropathy, 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 left knee replacement, valve replacement - Social History Smoking Status: Former smoker How long have you smoked: 6 Exposure to second hand smoke: No Drug Use: none Patient Lives Alone: Yes - Nursing Vital Signs Nursing Vital Signs: Initial Vital Signs Pulse Rate 92 H 02/17/23 14:02 Respiratory Rate 23 02/17/23 14:02 Blood Pressure 120/67 02/17/23 14:02 O2 Sat by Pulse Oximetry 97 02/17/23 14:02 Pain Scale Pain Intensity 8 - Physical Exam General Appearance: no apparent distress, alert Eye Exam: PERRL/EOMI Ears, Nose, Throat Exam: pharyngeal erythema Neck Exam: normal inspection, full range of motion Respiratory Exam: wheezing Cardiovascular Exam: regular rate/rhythm, normal heart sounds Extremity Exam: normal inspection, normal range of motion Neurologic Exam: alert, oriented x 3, cooperative, diagnostics tech II-XII nml as tested Skin Exam: normal color SpO2 Interpretation: normal SpO2: 97 O2 Delivery: Room Air Ordered Tests: Active Orders 24 hr Category Date Time Status CHEST 1 VIEW (PORTABLE) Stat Exams 02/17/23 14:29 Taken Respiratory Therapy Assessment DAILY RT 02/17/23 15:15 Completed Medication Summary Discontinued Medications Generic Name Dose Route Start Last Admin Trade Name Freq PRN Reason Stop Dose Admin Albuterol/Ipratropium 3 ml 02/17/23 15:02 02/17/23 15:13 Ipratropium/Albuterol Sulfate 3 Ml Ampul.Neb IH 02/17/23 15:03 3 ml STAT ONE Administration Albuterol/Ipratropium Confirm 02/17/23 15:10 Ipratropium/Albuterol Sulfate 3 Ml Ampul.Neb Administered 02/17/23 15:11 Dose 3 ml IH .STK-MED ONE Methylprednisolone Sodium 0 mg 02/17/23 16:18 Succinate 125 mg/ Sterile IM 02/17/23 16:19 Water 2 ml STAT ONE Lab/Rad Data: Laboratory Results 02/17/23 Range/Units 15:05 Influenza Type A Ag NEGATIVE (NEGATIVE) Influenza Type B Ag NEGATIVE (NEGATIVE) RSV (PCR) NEGATIVE (NEGATIVE) SARS-CoV-2 (PCR) NEGATIVE (NEGATIVE) Group A Strep Antibody NOT DETECTED (NEGATIVE) - Progress Progress: improved Air Movement: good Progress Note: 02/17/23 15:08 62 years old female with history of COPD, valvular replacement presented in the ER with chief complaint of cough congestion with subjective feeling of fever chills for the last couple of days with progressive worsening. Patient reported initially she was coughing up rodarte to yellow sputum and now it is a dry cough with body aches. No known sick contact. Denies any chest pain or palpitations/shortness of breath but what she has at her baseline. Patient is not in any distress. Has bilateral mild wheezing. We will do DuoNeb. 02/17/23 16:31 Patient is feeling better on reevaluation. Minimal wheezing on repeated exam. No acute cardiopulmonary findings on chest x-ray reviewed by me, official report is pending. Negative flu COVID and RSV. I believe patient has COPD exacerbation/viral syndrome. We will give a short course of steroids along with Z-Nabil. Outpatient follow-up recommended. Discussed signs symptoms of worsening needing return to ER which she seems understanding. Stable for discharge. Blood Culture(s) Obtained: No Antibiotics given: No Counseled pt/family regarding: lab results, diagnosis, need for follow-up, rad results, smoking cessation Medical Desision Making - Diagnostic Testing Diagnostic test were ordered, analyzed, and reviewed by me: Yes Radiological Interpretation: Interpreted by me, Reviewed by me - Risk of complications The pt has a mod risk of morbidity or mortality based on: Need for prescription drug management - Departure Departure Disposition: Home Clinical Impression: COPD exacerbation, URI with cough and congestion Condition: Stable Critical Care Time: No Referrals: WILFREDO,MELCHOR, MD [Primary Care Provider] - Follow up with PCP 1 day Instructions: Chronic Obstructive Pulmonary Disease, Cough, Adult (DC) Additional Instructions: Continue with inhaler/nebulizer. Follow-up with primary care for reevaluation. Return to ER for any worsening. Prescriptions: Prednisone 20 mg [Deltasone 20 mg] 60 mg PO DAILY 5 Days #10 tablet Azithromycin 250 mg [Zithromax 250 MG TABLET] 250 mg PO ZPACK #6 tablet
[2023-02-17 15:35] LABS: Group A Strep NOT DETECTED (NEGATIVE)
[2023-02-17 15:46] LABS: INFLUENZA A NEGATIVE (NEGATIVE); INFLUENZA B NEGATIVE (NEGATIVE); RESPIRATORY SYNCTIAL VIRUS NEGATIVE (NEGATIVE); SARS-CoV-2 Xpert Express NEGATIVE (NEGATIVE)
[2023-02-17] MEDS ORDERED: solu-MEDROL 125 MG, Sterile H2O 10 ml 2 ML IM ONE ×2 (16:18)
[2023-02-17] MEDS ORDERED: solu-MEDROL ONE (16:38)
[2023-02-17] MEDS ORDERED: Sterile H2O 10 ml IJ ONE (16:38)
[2023-02-17 16:59] VITALS: RESP 19
[2023-02-17 17:00] VITALS: BP 124/60; PULSE 90; O2SAT 98
--- NOTE | 2023-02-17 18:44 | XRAY ---
Indication: Cough and nasal drainage 3-4 days. Comparison: December 10, 2022 Portable chest again demonstrates right mid lung suture material and blunting right costophrenic angle. No focal infiltrate, consolidation, or large effusion. Heart not enlarged again with cardiac valve replacement surgery and left pacemaker. Bony thorax intact again with osteopenia and mild degenerative changes. Impression: Continued nonacute chest with chronic features.
== END 2023-02-17 17:00 | disposition home or self-care (01) ==
LOC: ED 14:01
DX: J44.1 Chronic obstructive pulmonary disease with (acute) exacerbation (principal); J06.9 Acute upper respiratory infection, unspecified; R05.1 Acute cough; R09.81 Nasal congestion; E78.5 Hyperlipidemia, unspecified; Z79.891 Long term (current) use of opiate analgesic; Z79.899 Other long term (current) drug therapy; Z79.52 Long term (current) use of systemic steroids
CPT/HCPCS: 0241U; 71045; 87651; 94640; 96372; 99284; J2930; A9270-GY

== ENCOUNTER 2023-04-25 02:57 | Emergency (ER) | payer MEDICARE ==
[2023-04-25] MEDS ORDERED: Sodium Chloride 0.9% 1000 ML 1,000 ML IV STA (03:52)
[2023-04-25 03:53] VITALS: TEMP 97.8
[2023-04-25 04:08] LABS: Absolute Neutrophil Ct (ANC) 4.15 x10^3/uL (1.4-6.9); Basophil (Absolute #) 0 x10^3/uL (0-0.4); Eosinophil (Absolute #) 0 x10^3/uL (0-0.5); Hematocrit 44.1 % (35-47); Hemoglobin 14.2 g/dL (12.0-16.0); IMMATURE GRAN # 0.03 x10^3u/L (0.00-0.03); IMMATURE GRAN % 0.5 % (0.00-0.4); Lymphocyte (Absolute #) 1.33 x10^3/uL (1.0-4.6); Lymphocytes % 23.1 % (24.0-44.0); Mean Cell Volume 86.6 fL (78-100); Mean Corpuscular Hemoglobin 27.9 pg (26-32); Mean Corpuscular Hgb Concent. 32.2 g/dL (32-36); Mean Platelet Volume 9.9 fL (7.5-11.0); Monocyte (Absolute #) 0.26 x10^3/uL (0.0-1.3); Monocytes % 4.5 % (0.0-12.0); Neutrophil % 71.9 % (36.0-66.0); Platelet Count 173 x10^3/uL (150-450); Red Blood Count 5.09 x10^6/uL (4.1-5.4); Red Cell Distribution Width 13.5 % (11.5-14.0); White Blood Count 5.8 x10^3/uL (4.0-10.5)
--- NOTE | 2023-04-25 04:09 | ERPHSYRPT ---
- History of Present Illness Time Seen by Provider: 04/25/23 03:30 Source: patient, family Exam Limitations: no limitations Patient Subjective Stated Complaint: pt states that at approx 0200 she was walking thru house to turn a light off, suddenly became lightheaded, then passed out for approx 1mins time. reports hitting the back of her head and tailbone on wood floor which are both "sore". states she wasn't able to get herself up right away so she crawled on her knees to a phone to call a friend (also states bilat knees are sore). pt reports that with her history of POTS this isn't uncommon and this episode isn't different than previous episodes and that she has been told in the past to come immediately to an ER after passing out. Triage Nursing Assessment: pt brought to room 4 via wheelchair after standing on scale for weight acquisition. pt able to get self independently out of wheelchair and walk to bed with slow steady gait. pt is alert and oriented times three, able to move all extremities, able to speak in complete sentences, and with resp even and unlabored. skin is warm, pink, dry, and intact. heart sounds present and regular. posterior bilat lung sounds in all servin except left lower are clear and diminished. left lower lung sounds are coarse. no edema or JVD noted. bilat radial and pedal pulses palpable. bilat upper and lower extremities strength is equal and strong. denies cp, sob, difficulty breathing, fever, c ough, chills, n/v, diarrhea, change in appetite, difficulty with urination (pt self caths at home prn due to neurogenic bladder) or bowel elimination. reports that when she woke up she was nauseated briefly without emesis. reports slight lightheadedness at this time as well. Physician History: This is an overweight 63-year-old white female patient of Dr. Villalobos who has a history of postural orthostatic tachycardia syndrome and presents to the emergency department after having a single syncopal episode. She fell and hit her head and was "out" for about a minute. She also hit her tailbone. She was up ambulating turning off the lights in her home when she felt dizzy and then the syncope occurred. Patient was brought into the emergency department by family vehicle. Patient often has these events of syncope and usually comes in after every episode. Patient presents with a systolic blood pressure in the 80s. She usually has a systolic blood pressure in the 90s. Recently, the patient has been noncompliant with her medications. Patient has a history of ob esity, Crohn's disease, COPD, restless leg syndrome, valve replacement, coronary disease (CABG), anxiety, asthma, fibromyalgia, CHF, hyperlipidemia gastroesophageal reflux disease and atrial fibrillation. She is not on any anticoagulation therapy Timing/Duration: today Severity: mild Character of Deficits: none (Deficit) Deficits: no difficulties Baseline/Normal Cognition: alert oriented x 3 Current Cognition: alert oriented x 3 Baseline Gait: walks w/o assistance Associated Symptoms: loss of consciousness Allergies/Adverse Reactions: latex Allergy (Intermediate, Verified 04/25/23 03:05) Hives rofecoxib [From Vioxx] Allergy (Intermediate, Verified 04/25/23 03:05) Nausea and Vomiting amoxicillin trihydrate [From Augmentin] Allergy (Mild, Verified 04/25/23 03:05) potassium clavula *RETIRED-08/06/12 [From Augmentin] Allergy (Mild, Verified 04/25/23 03:05) Sulfa (Sulfonamide Antibiotics) [Sulfa(Sulfonamide Antibiotics)] Allergy (Mild, Verified 04/25/23 03:05) sulfamethoxazole [From Bactrim] Allergy (Mild, Verified 04/25/23 03:05) trimethoprim [From Bactrim] Allergy (Mild, Verified 04/25/23 03:05) Home Medications: Cyanocobalamin (Vitamin B-12) [Vitamin B-12] 1,000 mcg PO DAILY 03/31/13 [History] Bumetanide 1 mg [Bumex 1 mg] 1 mg PO DAILY 12/10/22 [History] Buspirone HCl 5 mg [Buspar 5 mg] 10 mg PO BID 12/10/22 [History] Dicyclomine HCl 20 mg [Bentyl 20 mg] 20 mg PO QID 12/10/22 [History] Midodrine HCl 5 mg PO TID 12/10/22 [History] Ropinirole HCl 3 mg PO TID 12/10/22 [History] Topiramate 25 mg [Topamax 25 MG] 25 mg PO HS 12/10/22 [History] Trazodone HCl 50 mg [Desyrel 50 mg] 100 mg PO HS 12/10/22 [History] PANTOPRAZOLE 40 mg Tablet [Protonix 40MG Tablet] 1 tab PO DAILY 12/15/22 [History] Albuterol 2.5 mg/3 ml Neb [Proventil 2.5 mg/3 ml Neb] 2.5 mg IH Q6H PRN PRN 04/25/23 [History] Albuterol Sulfate [Proair Digihaler] 2 puffs IH Q6H PRN PRN 04/25/23 [History] Furosemide 40 mg [Lasix 40 MG] 40 mg PO DAILY 04/25/23 [History] Losartan Potassium [Cozaar] 0.5 tab PO DAILY 04/25/23 [History] Metoprolol Tartrate 50 mg [Lopressor 50 MG] 50 mg PO BID 04/25/23 [History] Ondansetron [Ondansetron Odt ] 4 mg PO Q6H PRN 04/25/23 [History] Hx Tetanus, Diphtheria Vaccination/Date Given: Yes Hx Influenza Vaccination/Date Given: Yes Hx Pneumococcal Vaccination/Date Given: Yes (unknown date <3yrs ago) Immunizations Up to Date: Yes Travel Risk - International Travel Have you traveled outside of the country in past 3 weeks: No - Coronavirus Screening Are you exhibiting any of the following symptoms?: No Close contact with a COVID-19 positive Pt in past 14-21 Days: No - Vaccine Status Have you recieved a Covid-19 vaccination: Yes 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: [employer] - Vaccination Dates Date of 2cond Vaccination (if applicable): 07/21/2020 - Review of Systems Constitutional: No Symptoms Eyes: No Symptoms Ears, Nose, & Throat: No Symptoms Respiratory: No Symptoms Cardiac: No Symptoms Abdominal/Gastrointestinal: No Symptoms Genitourinary Symptoms: No Symptoms Musculoskeletal: No Symptoms Skin: No Symptoms Neurological: No Symptoms Psychological: No Symptoms Endocrine: No Symptoms Hematologic/Lymphatic: No Symptoms Immunological/Allergic: No Symptoms All Other Systems: Reviewed and Negative - Past Medical History Pertinent Past Medical History: Yes Neurological History: Peripheral Neuropathy, Other ENT History: No Pertinent History Cardiac History: Arrhythmia, Congestive Heart Failure, High Cholesterol, Other Respiratory History: Sleep Apnea, CHF, COPD, Asthma, Bronchitis, Pneumonia Endocrine Medical History: Hypothyroidism Musculoskeletal History: Other, Arthritis, Rheumatoid Arthritis, Osteoarthritis, Fibromyalgia GI Medical History: Diverticulitis, Gallbladder Disease, Other History: Other Psycho-Social History: Anxiety, Depression Female Reproductive Disorders: Cervical Cancer Other Medical History: POTS, RLS, PPM, Afib, IBS, neurogenic bladder (self cath at home PRN), scoliosis, neuropathy, 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 left knee replacement, valve replacement - Social History Smoking Status: Current some day smoker How long have you smoked: 18yo Exposure to second hand smoke: No Drug Use: none Patient Lives Alone: Yes - Nursing Vital Signs Nursing Vital Signs: Initial Vital Signs Temperature 97.8 F 04/25/23 03:05 Pulse Rate 89 04/25/23 03:05 Respiratory Rate 20 04/25/23 03:05 Blood Pressure 88/66 04/25/23 03:05 O2 Sat by Pulse Oximetry 96 04/25/23 03:05 Pain Scale Pain Intensity 8 - Samantha Coma Scale Best Eye Response (Samantha): (4) open spontaneously Best Verbal Response ([place]): (5) oriented Best Motor Response (Samantha): (6) obeys commands Samantha Total: 15 - Physical Exam General Appearance: no apparent distress, alert, anxiety Eye Exam: bilateral eye: normal inspection, PERRL, EOMI Ears, Nose, Throat Exam: normal ENT inspection, moist mucous membranes Neck Exam: normal inspection, non-tender, supple, full range of motion Respiratory: normal breath sounds, lungs clear, airway intact, No chest tenderness, No respiratory distress Cardiovascular: regular rate/rhythm, normal heart sounds, normal peripheral pulses Gastrointestinal: soft, normal bowel sounds, No tenderness Pelvic Exam: not done Rectal Exam: not done Back Exam: normal inspection, normal range of motion, No CVA tenderness, No vertebral tenderness Extremity Exam: normal inspection, normal range of motion, pelvis stable Mental Status: alert, oriented x 3, 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 Exam: normal hearing, normal speech, PERRL Coordination/Gait: normal finger to nose, normal gait, normal cerebellar function Motor/Sensory: no motor deficit, no sensory deficit, no pronator drift Skin Exam: normal color, warm, dry SpO2 Interpretation: normal SpO2: 96 O2 Delivery: Room Air - Course Nursing assessment & vital signs reviewed: Yes Ordered Tests: Active Orders 24 hr Category Date Time Status Video Production Assistant STAT Care 04/25/23 03:55 Active EKG-ER Only STAT Care 04/25/23 03:52 Active IV Insertion STAT Care 04/25/23 03:52 Active Pulse Oximetry (ED) STAT Care 04/25/23 03:52 Active CERVICAL SPINE WO CONTRAST [CT] Stat Exams 04/25/23 03:53 Completed HEAD WITHOUT CONTRAST [CT] Stat Exams 04/25/23 03:53 Completed SACRUM AND COCCYX Stat Exams 04/25/23 04:05 Taken CBC W DIFF Stat Lab 04/25/23 03:59 Completed CMP Stat Lab 04/25/23 03:59 Completed CULTURE,URINE Stat Lab 04/25/23 04:13 Received ETHYL ALCOHOL Stat Lab 04/25/23 03:59 Completed TROPONIN Q4H Lab 04/25/23 03:59 Completed TROPONIN Q4H Lab 04/25/23 08:00 Ordered TROPONIN Q4H Lab 04/25/23 12:00 Ordered UA W/RFX UR CULTURE Stat Lab 04/25/23 04:13 Completed Medication Summary Generic Name Dose Route Start Last Admin Trade Name Freq PRN Reason Stop Dose Admin Ceftriaxone Sodium/Dextrose 1 g in 50 mls @ 100 mls/hr 04/25/23 05:10 04/25/23 05:31 Rocephin 1 Gm-D5w 50 Ml Bag IV 04/25/23 05:39 100 mls/hr STAT STA 100 mls/hr Administration Discontinued Medications Generic Name Dose Route Start Last Admin Trade Name Freq PRN Reason Stop Dose Admin Sodium Chloride 1,000 mls @ 999 mls/hr 04/25/23 03:52 04/25/23 04:41 Sodium Chloride 0.9% 1000 Ml IV 04/25/23 04:52 999 mls/hr .Q1H1M STA Administration Sodium Chloride Confirm 04/25/23 04:23 Sodium Chloride 0.9% 1000 Ml Administered 04/25/23 04:24 Dose 1,000 mls @ ud .ROUTE .STK-MED ONE Ceftriaxone Sodium/Dextrose Confirm 04/25/23 05:26 Rocephin 1 Gm-D5w 50 Ml Bag Administered 04/25/23 05:27 Dose 1 g in 50 mls @ ud IV .STK-MED ONE Morphine Sulfate 2 mg 04/25/23 04:36 04/25/23 05:05 Morphine Sulfate 2 Mg/Ml Inj IV 04/25/23 04:37 2 mg STAT ONE Administration Morphine Sulfate Confirm 04/25/23 05:01 Morphine Sulfate 2 Mg/Ml Inj Administered 04/25/23 05:02 Dose 2 mg .ROUTE .STK-MED ONE Ondansetron HCl 4 mg 04/25/23 04:36 04/25/23 05:04 Ondansetron Hcl 4 Mg/2 Ml Vial IV 04/25/23 04:37 4 mg STAT ONE Administration Ondansetron HCl Confirm 04/25/23 05:00 Ondansetron Hcl 4 Mg/2 Ml Vial Administered 04/25/23 05:01 Dose 4 mg .ROUTE .STK-MED ONE Lab/Rad Data: Laboratory Result Diagrams 04/25/23 03:59 04/25/23 03:59 Laboratory Results 04/25/23 04/25/23 04/25/23 Range/Units 04:13 03:59 03:59 WBC (4.0-10.5) x10^3/uL RBC (4.1-5.4) x10^6/uL Hgb (12.0-16.0) g/dL Hct (35-47) % MCV (78-100) fL MCH (26-32) pg MCHC (32-36) g/dL RDW (11.5-14.0) % Plt Count (150-450) x10^3/uL MPV (7.5-11.0) fL Gran % (36.0-66.0) % Immature Gran % (Auto) (0.00-0.4) % Nucleat RBC Rel Count (0.00-0.1) % Eos # (Auto) (0-0.5) x10^3/uL Immature Gran # (Auto) (0.00-0.03) x10^3u/L Absolute Lymphs (auto) (1.0-4.6) x10^3/uL Absolute Monos (auto) (0.0-1.3) x10^3/uL Absolute Nucleated RBC (0.00-0.01) x10^3u/L Lymphocytes % (24.0-44.0) % Monocytes % (0.0-12.0) % Eosinophils % (0.00-5.0) % Basophils % (0.0-0.4) % Absolute Granulocytes (1.4-6.9) x10^3/uL Basophils # (0-0.4) x10^3/uL Sodium 137 (137-145) mmol/L Potassium 3.5 (3.5-5.1) mmol/L Chloride 101 (98-107) mmol/L Carbon Dioxide 28 (22-30) mmol/L Anion Gap 11.6 (5-15) MEQ/L BUN 17 (7-17) mg/dL Creatinine 0.82 (0.52-1.04) mg/dL Estimated GFR 80.3 ML/MIN Glucose 135 H (74-106) mg/dL Calcium 9.8 (8.4-10.2) mg/dL Total Bilirubin 0.80 (0.2-1.3) mg/dL AST 25 (14-36) U/L ALT 15 (0-35) U/L Alkaline Phosphatase 96 (38-126) U/L Troponin I < 0.012 (0.000-0.034) ng/mL Serum Total Protein 8.2 (6.3-8.2) g/dL Albumin 4.5 (3.5-5.0) g/dL Urine Color Dark Yellow A (Yellow) Urine Appearance Turbid A (Clear) Urine pH 6.5 (4.6-8.0) Ur Specific [place] 1.020 (1.005-1.030) Urine Protein Trace A (Negative) Urine Glucose (UA) Negative (Negative) mg/dL Urine Ketones Negative (Negative) Urine Blood Trace (Negative) Urine Nitrite Positive A (Negative) Urine Bilirubin Negative (Negative) Urine Urobilinogen 1.0 A (0.2) mg/dL Ur Leukocyte Esterase Large A (Negative) U Hyaline Cast (Auto) 6-10 A (0-2) /LPF Urine Microscopic RBC 3-5 (0-5) /HPF Urine Microscopic WBC >100 A (0-5) /HPF Ur Epithelial Cells Rare (None Seen) /HPF Urine Bacteria Many A (None Seen) /HPF Urine Culture Reflexed YES (NO) Ethyl Alcohol < 10 (0-10) mg/dL 04/25/23 Range/Units 03:59 WBC 5.8 (4.0-10.5) x10^3/uL RBC 5.09 (4.1-5.4) x10^6/uL Hgb 14.2 (12.0-16.0) g/dL Hct 44.1 (35-47) % MCV 86.6 (78-100) fL MCH 27.9 (26-32) pg MCHC 32.2 (32-36) g/dL RDW 13.5 (11.5-14.0) % Plt Count 173 (150-450) x10^3/uL MPV 9.9 (7.5-11.0) fL Gran % 71.9 H (36.0-66.0) % Immature Gran % (Auto) 0.5 H (0.00-0.4) % Nucleat RBC Rel Count 0.0 (0.00-0.1) % Eos # (Auto) 0 (0-0.5) x10^3/uL Immature Gran # (Auto) 0.03 (0.00-0.03) x10^3u/L Absolute Lymphs (auto) 1.33 (1.0-4.6) x10^3/uL Absolute Monos (auto) 0.26 (0.0-1.3) x10^3/uL Absolute Nucleated RBC 0.00 (0.00-0.01) x10^3u/L Lymphocytes % 23.1 L (24.0-44.0) % Monocytes % 4.5 (0.0-12.0) % Eosinophils % 0.0 (0.00-5.0) % Basophils % 0.0 (0.0-0.4) % Absolute Granulocytes 4.15 (1.4-6.9) x10^3/uL Basophils # 0 (0-0.4) x10^3/uL Sodium (137-145) mmol/L Potassium (3.5-5.1) mmol/L Chloride (98-107) mmol/L Carbon Dioxide (22-30) mmol/L Anion Gap (5-15) MEQ/L BUN (7-17) mg/dL Creatinine (0.52-1.04) mg/dL Estimated GFR ML/MIN Glucose (74-106) mg/dL Calcium (8.4-10.2) mg/dL Total Bilirubin (0.2-1.3) mg/dL AST (14-36) U/L ALT (0-35) U/L Alkaline Phosphatase (38-126) U/L Troponin I (0.000-0.034) ng/mL Serum Total Protein (6.3-8.2) g/dL Albumin (3.5-5.0) g/dL Urine Color (Yellow) Urine Appearance (Clear) Urine pH (4.6-8.0) Ur Specific [place] (1.005-1.030) Urine Protein (Negative) Urine Glucose (UA) (Negative) mg/dL Urine Ketones (Negative) Urine Blood (Negative) Urine Nitrite (Negative) Urine Bilirubin (Negative) Urine Urobilinogen (0.2) mg/dL Ur Leukocyte Esterase (Negative) U Hyaline Cast (Auto) (0-2) /LPF Urine Microscopic RBC (0-5) /HPF Urine Microscopic WBC (0-5) /HPF Ur Epithelial Cells (None Seen) /HPF Urine Bacteria (None Seen) /HPF Urine Culture Reflexed (NO) Ethyl Alcohol (0-10) mg/dL - Progress Progress: improved, re-examined Progress Note: 04/25/23 04:11 This patient's medical issue is 1 of moderate complexity. The level of complexity and the workup performed is based on review of the patient's past medical history, review of the patient's medication list, review the patient's drug allergy list, history of present illness and physical findings on examination. The workup in this patient includes placement of intravenous line, infusion of normal saline 1 L, twelve-lead EKG, troponin level, CBC, CMP, urinalysis and CT scan of the head and neck. 04/25/23 05:11 I interpreted the patient's laboratory data results. The patient has a significant urinary tract infection. Will provide her with 1 g of Rocephin intravenously followed by sending a prescription remotely to her pharmacy for Cipro 500 mg orally twice a day for 7 days. 04/25/23 05:32 I interpreted the patient's sacrum and coccyx x-ray. There are no new or acute fractures present. CT scan of the head without contrast was interpreted by the radiologist. There are no acute intracranial abnormalities. CT scan of cervical spine without contrast shows no acute fracture or subluxation present. 04/25/23 05:33 Patient's primary care provider is out of country for another week. I will remotely send a prescription of midodrine to the patient's pharmacy to cover this medication for 1 week's time. Counseled pt/family regarding: lab results, diagnosis, need for follow-up, rad results Medical Desision Making - Independent Historian Additional History obtained from: Relative/friend - Diagnostic Testing Diagnostic test were ordered, analyzed, and reviewed by me: Yes Radiological Interpretation: Reviewed by me, Teleradiologist Report - Risk of complications The pt has a mod risk of morbidity or mortality based on: Need for prescription drug management - Departure Departure Disposition: Home Clinical Impression: Episode of syncope, UTI (urinary tract infection), Postural orthostatic tachycardia syndrome [POTS] Condition: Stable Critical Care Time: No Referrals: MELCHOR VILLALOBOS MD [Primary Care Provider] - Follow up/PCP as directed Additional Instructions: Drink plenty of fluids. Fill and take your midodrine medication. Take your antibiotics and other medication as prescribed. Call your primary care provider later today, 04/25/2023, to make arranges for follow-up appointment the next 3 to 5 days. Prescriptions: Ciprofloxacin [Cipro 500 MG] 500 mg PO BID #14 tablet Midodrine HCl 5 mg PO TID #30 tablet
[2023-04-25 04:10] LABS: ALBUMIN 4.5 g/dL (3.5-5.0); ALKALINE PHOSPHATASE 96 U/L (38-126); ANION GAP 11.6 MEQ/L (5-15); BLOOD UREA NITROGEN 17 mg/dL (7-17); CHLORIDE 101 mmol/L (98-107); Calcium 9.8 mg/dL (8.4-10.2); Carbon Dioxide 28 mmol/L (22-30); Creatinine 1 0.82 mg/dL (0.52-1.04); EST GLOMERULAR FILTRATION RATE 80.3 ML/MIN; ETHYL ALCOHOL < 10 mg/dL (0-10); Glucose 135 mg/dL (74-106); Potassium 3.5 mmol/L (3.5-5.1); SGOT/AST 25 U/L (14-36); SGPT/ALT 15 U/L (0-35); SODIUM 137 mmol/L (137-145); Total Protein 8.2 g/dL (6.3-8.2)
[2023-04-25] MEDS ORDERED: Sodium Chloride 0.9% 1000 ML 1,000 ML ONE (04:23)
[2023-04-25 04:25] LABS: ADD URINE CULTURE? YES (NO); Appearance Turbid (Clear); Bacteria Many /HPF (None Seen); Bilirubin Negative (Negative); Blood Trace (Negative); Epithelial Cells Rare /HPF (None Seen); Glucose, Urine Negative (Negative); Ketones Negative (Negative); Leukocyte Esterase Large (Negative); Nitrite Positive (Negative); Ph 6.5 (4.6-8.0); Protein,Urine Dip Trace (Negative); WBC >100 /HPF (0-5)
[2023-04-25] MEDS ORDERED: Zofran 4 MG/2 ML VIAL IV ONE (04:36)
[2023-04-25] MEDS ORDERED: MORPHINE SULFATE 2 MG INJ IV ONE (04:36)
[2023-04-25] MEDS ORDERED: Zofran 4 MG/2 ML VIAL ONE (05:00)
[2023-04-25] MEDS ORDERED: MORPHINE SULFATE 2 MG INJ ONE (05:01)
[2023-04-25] MEDS ORDERED: ROCEPHIN 1 Gm-D5w 50 ml Bag** 1 G/50 ML IVPB IV STA (05:10)
--- NOTE | 2023-04-25 05:20 | XRAY ---
CLINICAL HISTORY:Fall injury COMPARISON:None. TECHNIQUE:Thin axial CT of the cervical spine was performed with sagittal and coronal reconstructions without contrast. FINDINGS: No acute fractures can be detected. Grade 1 anterolisthesis of C2 over C3 vertebra. Subtle retrolisthesis of C3 vertebra. Vertebral spondylotic changes with marginal osteophytes and osteoarthritis of facet joints. Straightening of cervical spine curve denoting muscle spasm. The vertebral bodies are normal in height. Narrowing of C4-C5 and C5-C6 disc spaces with vacuum phenomena at C4-C5 disc. IMPRESSION: No acute fractures can be detected. Grade 1 anterolisthesis of C2 over C3 and retrolisthesis of C3 vertebra, likely chronic. Vertebral spondylitic changes. Straightening of cervical lordosis suggestive of muscle spasm. Electronically Signed by: Beck Christina MD. (04/25/2023 05:17:31 EST)
[2023-04-25] MEDS ORDERED: ROCEPHIN 1 Gm-D5w 50 ml Bag** 1 G/50 ML IVPB IV ONE (05:26)
--- NOTE | 2023-04-25 05:27 | XRAY ---
CLINICAL HISTORY:Fall injury COMPARISON:none TECHNIQUE:Multiple axial images are obtained from the skull base to the vertex without contrast. CT scan was performed according to ALARA (as low as reasonable achievable). FINDINGS: Mild diffuse age related cerebral atrophy seen. The brain shows normal morphology, attenuation, and volume for age. No evidence of space occupying lesion, hemorrhage, edema, mass effect, midline shift, extra axial collection, or hydrocephalus is noted. Ventricles, sulci, and basal cisterns are symmetric and normal in size and configuration. The rodarte-white matter differentiation is preserved. Visualized paranasal sinuses and mastoid air cells are well aerated with minimal mucosal thickening seen in right maxillary sinus. Orbital contents are within normal limits. Bony structures are intact. IMPRESSION: 1. No acute intracranial abnormality seen. Electronically Signed by: Dr. Kenny Schafer MD. (04/25/2023 05:22:30 EST)
[2023-04-25] MEDS ORDERED: PROAMATINE PO ONE (05:34)
[2023-04-25] MEDS ORDERED: Protonix 40MG Tablet PO ONE (05:37)
[2023-04-25] MEDS ORDERED: Protonix 40MG Tablet ONE (05:44)
[2023-04-25 06:18] VITALS: BP 97/60; PULSE 72; RESP 13; O2SAT 97
--- NOTE | 2023-04-25 08:51 | XRAY ---
Indication: Pain following fall. Comparison: None 3 view sacrum/coccyx demonstrates osteopenia and left SI fusion hardware. No other bony, articular, or soft tissue abnormalities.
== END 2023-04-25 06:18 | disposition home or self-care (01) ==
LOC: ED 02:57
DX: N39.0 Urinary tract infection, site not specified (principal); R55 Syncope and collapse; G90.A Postural orthostatic tachycardia syndrome [POTS]; I50.9 Heart failure, unspecified; E78.5 Hyperlipidemia, unspecified; Z79.899 Other long term (current) drug therapy; Z72.0 Tobacco use
CPT/HCPCS: 36000; 36415; 70450; 72125; 72220; 80053; 81001; 82077; 84484; 85025; 87077; 87086; 87186; 93005; 93041; 94760; 96360; 96365; 96374; 96375; 99285; J0696; J2270; J2405; A9270-GY

== ENCOUNTER 2023-12-20 16:04 | Emergency (ER) | payer MEDICARE ==
--- NOTE | 2023-12-20 16:07 | ERPHSYRPT ---
- History of Present Illness Time Seen by Provider: 12/20/23 16:06 Source: patient Exam Limitations: no limitations Physician History: This is an overweight 63-year-old white female patient who was putting up shelves in had a heavy pole on the counter when it rolled off, falling directly onto the dorsal aspect of her right foot. This occurred last evening. She is having pain with ambulation and has been using a cane to help her ambulate. Occurred: yesterday Quality: constant, aching, throbbing Severity of Pain-Max: moderate Severity of Pain-Current: moderate Lower Extremities Pain: foot: right (Dorsal aspect) Modifying Factors: Improves With: movement Associated Symptoms: other (Hurts to bear weight) Allergies/Adverse Reactions: latex Allergy (Intermediate, Verified 12/20/23 16:12) Hives rofecoxib [From Vioxx] Allergy (Intermediate, Verified 12/20/23 16:12) Nausea and Vomiting amoxicillin trihydrate [From Augmentin] Allergy (Mild, Verified 12/20/23 16:12) potassium clavula *RETIRED-08/06/12 [From Augmentin] Allergy (Mild, Verified 12/20/23 16:12) Sulfa (Sulfonamide Antibiotics) [Sulfa(Sulfonamide Antibiotics)] Allergy (Mild, Verified 12/20/23 16:12) sulfamethoxazole [From Bactrim] Allergy (Mild, Verified 12/20/23 16:12) trimethoprim [From Bactrim] Allergy (Mild, Verified 12/20/23 16:12) Home Medications: Cyanocobalamin (Vitamin B-12) [Vitamin B-12] 1,000 mcg PO DAILY 03/31/13 [History] Bumetanide 1 mg [Bumex 1 mg] 1 mg PO DAILY 12/10/22 [History] Buspirone HCl 5 mg [Buspar 5 mg] 10 mg PO BID 12/10/22 [History] Dicyclomine HCl 20 mg [Bentyl 20 mg] 20 mg PO QID 12/10/22 [History] Midodrine HCl 5 mg PO TID 12/10/22 [History] Ropinirole HCl 3 mg PO TID 12/10/22 [History] Topiramate 25 mg [Topamax 25 MG] 25 mg PO HS 12/10/22 [History] Trazodone HCl 50 mg [Desyrel 50 mg] 100 mg PO HS 12/10/22 [History] PANTOPRAZOLE 40 mg Tablet [Protonix 40MG Tablet] 1 tab PO DAILY 12/15/22 [History] Albuterol 2.5 mg/3 ml Neb [Proventil 2.5 mg/3 ml Neb] 2.5 mg IH Q6H PRN PRN 04/25/23 [History] Albuterol Sulfate [Proair Digihaler] 2 puffs IH Q6H PRN PRN 04/25/23 [History] Furosemide 40 mg [Lasix 40 MG] 40 mg PO DAILY 04/25/23 [History] Losartan Potassium [Cozaar] 0.5 tab PO DAILY 04/25/23 [History] Metoprolol Tartrate 50 mg [Lopressor 50 MG] 50 mg PO BID 04/25/23 [History] Ondansetron [Ondansetron Odt ] 4 mg PO Q6H PRN 04/25/23 [History] Hx Tetanus, Diphtheria Vaccination/Date Given: Yes Hx Influenza Vaccination/Date Given: Yes Hx Pneumococcal Vaccination/Date Given: Yes (unknown date <3yrs ago) Travel Risk - International Travel Have you traveled outside of the country in past 3 weeks: No - Emerging Infectious Disease Are you exhibiting symptoms associated with any current EIDs: No - Review of Systems Constitutional: No Symptoms Eyes: No Symptoms Ears, Nose, & Throat: No Symptoms Respiratory: No Symptoms Cardiac: No Symptoms Abdominal/Gastrointestinal: No Symptoms Genitourinary Symptoms: No Symptoms Musculoskeletal: Injury (Dorsal aspect right foot) Skin: No Symptoms Neurological: No Symptoms Psychological: No Symptoms Endocrine: No Symptoms Hematologic/Lymphatic: No Symptoms Immunological/Allergic: No Symptoms All Other Systems: Reviewed and Negative - Past Medical History Pertinent Past Medical History: Yes Neurological History: Peripheral Neuropathy, Other ENT History: No Pertinent History Cardiac History: Arrhythmia, Congestive Heart Failure, High Cholesterol, Other Respiratory History: Sleep Apnea, CHF, COPD, Asthma, Bronchitis, Pneumonia Endocrine Medical History: Hypothyroidism Musculoskeletal History: Other, Arthritis, Rheumatoid Arthritis, Osteoarthritis, Fibromyalgia GI Medical History: Diverticulitis, Gallbladder Disease, Other History: Other Psycho-Social History: Anxiety, Depression Female Reproductive Disorders: Cervical Cancer Other Medical History: POTS, RLS, PPM, Afib, IBS, neurogenic bladder (self cath at home PRN), scoliosis, neuropathy, 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 left knee replacement, valve replacement - Social History Smoking Status: Current some day smoker How long have you smoked: 18yo Exposure to second hand smoke: No Drug Use: none Patient Lives Alone: Yes - Nursing Vital Signs Nursing Vital Signs: Initial Vital Signs Temperature 97.4 F 12/20/23 16:13 Pulse Rate 83 12/20/23 16:13 Respiratory Rate 17 12/20/23 16:13 Blood Pressure 108/60 12/20/23 16:13 O2 Sat by Pulse Oximetry 97 12/20/23 16:13 Pain Scale Pain Intensity 7 - Physical Exam General Appearance: no apparent distress, alert, anxiety Eyes, Ears, Nose, Throat Exam: normal ENT inspection, moist mucous membranes Neck Exam: normal inspection, non-tender, supple, full range of motion Cardiovascular/Respiratory Exam: chest non-tender, no respiratory distress Gastrointestinal/Abdominal Exam: non-tender Back Exam: normal inspection, normal range of motion, No CVA tenderness, No vertebral tenderness Hips Exam: bilateral: non-tender, normal inspection, normal range of motion, no evidence of injury Legs Exam: bilateral leg: non-tender, normal inspection, normal range of motion, no evidence of injury Knees Exam: bilateral knee: non-tender, normal inspection, normal range of motion, no evidence of injury Ankle Exam: bilateral ankle: non-tender, normal inspection, normal range of motion, no evidence of injury Foot Exam: right foot: bone tenderness (Dorsal aspect), soft tissue tenderness (Dorsal aspect), swelling (Dorsal aspect), left foot: non-tender, normal in spection, normal range of motion, no evidence of injury Neuro/Tendon Exam: normal sensation, normal motor functions, normal tendon functions, responds to pain Mental Status Exam: alert, oriented x 3, cooperative Skin Exam: normal color, warm, dry SpO2 Interpretation: normal O2 Delivery: Room Air - Course Nursing assessment & vital signs reviewed: Yes Ordered Tests: Active Orders 24 hr Category Date Time Status Splint STAT Care 12/20/23 17:20 Completed FOOT (MINIMUM 3 VIEWS) Stat Exams 12/20/23 16:18 Completed Medication Summary Discontinued Medications Generic Name Dose Route Start Last Admin Trade Name Pricilla PRN Reason Stop Dose Admin Oxycodone/Acetaminophen 1 tab 12/20/23 17:13 12/20/23 17:15 Oxycodone Hcl/Apap 5 Mg/325 Mg Tablet PO 12/20/23 17:14 1 tab STAT STA Administration Oxycodone/Acetaminophen Confirm 12/20/23 17:14 Oxycodone Hcl/Apap 5 Mg/325 Mg Tablet Administered 12/20/23 17:15 Dose 1 tab .ROUTE .STK-MED ONE - Progress Progress: pain not gone completely Progress Note: 12/20/23 17:10 My medical decision making and the assignment of low complexity to this patient's medical issue today is based on review of the patient's past medical history, review of patient medication list, review the patient drug allergy li st, history present illness and physical findings on examination. Today's workup includes x-ray of the patient's right foot. Differential diagnosis includes but is not limited to right foot fracture, right foot contusion 12/20/23 22:24 The radiologist interpreted the patient's right foot x-ray and there is no evidence of any acute fracture or dislocation. Counseled pt/family regarding: diagnosis, need for follow-up, rad results Medical Desision Making - Independent Historian Additional History obtained from: Relative/friend - Diagnostic Testing Diagnostic test were ordered, analyzed, and reviewed by me: Yes Radiological Interpretation: Reviewed by me, Teleradiologist Report - Risk of complications The pt has a mod risk of morbidity or mortality based on: Need for prescription drug management - Departure Departure Disposition: Home Clinical Impression: Contusion of right foot Condition: Stable Critical Care Time: No Referrals: MELCHOR VILLALOBOS MD [Primary Care Provider] - Follow up/PCP as directed Instructions: Minor Contusion ED Additional Instructions: Ice pack or ice bath 3 times a day for the next 72 hours. Call your primary care provider on 12/23/2023 to make arranges for follow-up appointment for further evaluation and management and to be evaluated if you have persistent pain. Bearing as tolerated Prescriptions: Oxycodone HCl/Acetaminophen [Percocet 5-325 mg Tablet] 1 each PO Q8H PRN PRN #6 tablet MDD 3 PRN Reason: Moderate To Severe Pain
[2023-12-20 16:18] VITALS: TEMP 97.4
--- NOTE | 2023-12-20 17:00 | XRAY ---
Indication: Pain following injury. Comparison: None 3 nonweightbearing views right foot demonstrates small enchondromas distal tibia and calcaneus. No other bony, articular, or soft tissue abnormalities.
[2023-12-20] MEDS ORDERED: PERCOCET TABLET 5/325MG ONE (17:14)
[2023-12-20] MEDS: PERCOCET TABLET 5/325MG PO STA (17:15)
[2023-12-20 17:21] VITALS: BP 92/66; PULSE 72; RESP 16; O2SAT 95
== END 2023-12-20 16:30 | disposition home or self-care (01) ==
LOC: ED 16:04
DX: S90.31XA Contusion of right foot, initial encounter (principal); W20.8XXA Other cause of strike by thrown, projected or falling object, initial encounter; E78.5 Hyperlipidemia, unspecified; Z79.899 Other long term (current) drug therapy; Z72.0 Tobacco use
CPT/HCPCS: 73630; 99283; A9270-GY